=== PATIENT | female | born 1985 | race Caucasian/White ===

== ENCOUNTER → 2018-03-10 10:21 | Outpatient (CLI) | payer OTHER, MEDICAID, SELFPAY ==
[2018-03-10 13:00] LABS: HCG Quantitative /Beta subunit 26.08 mIU/mL
== END ==
PROVIDERS: Visit Provider Obstetrics & Gynecology
DX: N91.2 Amenorrhea, unspecified (principal)
CPT/HCPCS: 36415; 84702

== ENCOUNTER → 2018-03-22 11:48 | Outpatient (CLI) | payer OTHER, MEDICAID, SELFPAY ==
[2018-03-22 12:50] LABS: Add Manual Diff / Slide Review NO; Basophils Percent Auto 0.6 % (0-2); Eosinophils Percent Auto 0.5 % (2-4); Hematocrit 40.1 % (36-46); Hemoglobin 13.5 g/dL (12.0-16.0); Lymphocytes Percent Auto 32.2 % (25-40); Mean Corpuscular HGB Conc 33.6 % (30-36); Mean Corpuscular Hemoglobin 32.6 PG (26-34); Monocytes Percent Auto 6.8 % (3-14); Neutrophils Absolute Auto 3100 /uL (3000-5900); Neutrophils Percent Auto 59.9 % (50-75); Platelet Count 273 X10^3/uL (150-400); Red Blood Cell Count 4.13 X10^6/uL (4.0-5.2); Red Cell Distribution Width 11.8 % (11.6-14.8); White Blood Cell Count 5.2 X10^3/uL (4.5-11.0)
[2018-03-22 13:28] LABS: HCG Quantitative /Beta subunit 10023 mIU/mL
[2018-03-22 14:51] LABS: Hepatitis B Surface Antigen NEGATIVE s/c (NEGATIVE); Rubella Antibody IgG 18.6 IU/mL (>15)
[2018-03-22 15:12] LABS: HIV 1 and 2 Antibody NEGATIVE (NEGATIVE); Hep C Virus Ab w/Reflex Quant NEGATIVE s/c (NEGATIVE)
[2018-03-24 14:06] LABS: HSV 2 IGG AB < 0.90 index (< 0.90)
[2018-03-29 10:32] LABS: Rapid Plasma Reagin NON-REACTIVE
== END ==
PROVIDERS: Visit Provider Obstetrics & Gynecology
DX: N96 Recurrent pregnancy loss (principal); Z34.91 Encounter for supervision of normal pregnancy, unspecified, first trimester
CPT/HCPCS: 36415; 80055; 84702; 86695; 86696; 86703; 86787; 86803; 86850; 86900; 86901; 87086

== ENCOUNTER → 2018-04-14 16:46 | Outpatient (CLI) | payer OTHER, MEDICAID, SELFPAY ==
[2018-04-14 22:06] LABS: Urine N gonorrhoeae NOT DETECTED
[2018-04-14 22:07] LABS: Urine Chlamydia NOT DETECTED
== END ==
PROVIDERS: Visit Provider Obstetrics & Gynecology
DX: Z11.3 Encounter for screening for infections with a predominantly sexual mode of transmission (principal); Z11.8 Encounter for screening for other infectious and parasitic diseases; Z34.81 Encounter for supervision of other normal pregnancy, first trimester
CPT/HCPCS: 87491; 87591

== ENCOUNTER → 2018-06-19 12:21 | Outpatient (CLI) | payer OTHER, MEDICAID, SELFPAY ==
[2018-06-25 11:56] LABS: AFP, Serum 21.1 ng/mL; Calc Gestational Age 18.3; Cigarette Smoker N; Donated Egg NOT GIVEN; Donor Egg Age NOT GIVEN; Estriol, Free 1.64 ng/mL; Inhibin A, Dimeric 170 pg/mL; Maternal Weight 152 lbs; Number of Fetuses 1; Previous Pregnancy Down Syndro NOT GIVEN; hCG, MoM 1.54; hCG, Serum 35.4 IU/mL
== END ==
PROVIDERS: PCP Family Medicine; Visit Provider Obstetrics & Gynecology
DX: Z3A.18 18 weeks gestation of pregnancy (principal); Z34.82 Encounter for supervision of other normal pregnancy, second trimester
CPT/HCPCS: 82105; 82677; 84702; 86336

== ENCOUNTER → 2018-07-01 10:13 | Outpatient (CLI) | payer OTHER, MEDICAID, SELFPAY ==
--- NOTE | 2018-07-01 10:14 | DI.US.S_ITS ---
PROCEDURE: US OB >= 14 WEEKS FETUS INDICATIONS: Anatomy Survey OUTSIDE/PRIOR DATING DATA: Last menstrual period (LMP): 02/11/18. LMP-based estimated date of delivery (YULIET): 11/18/18. First dating scan (date and location): 04/14/18. Estimated date of delivery (YULIET) from first dating scan: 11/19/18. TECHNIQUE: Real-time scanning was performed of the fetus, with image documentation and biometric measurements. Endovaginal scanning: No COMPARISON: [facility], , OB >= 14 WEEKS FETUS, 04/14/2018, 16:47. FINDINGS: General: A single living intrauterine gestation is present. Presentation: Transverse. Placenta: Placental position is posterior lateral, without previa. Amniotic fluid index: 14.7 cm, normal range is 5-24 cm. heart rate: 150 beats per minute. Maternal cervical canal: 5.7 cm long. Normal lower limit is 2.5 cm. biometrics: Biparietal diameter: 20 weeks Head circumference: 19 weeks 6 days Abdominal circumference: 20 weeks 3 days Femur length: 20 weeks 3 days Estimated gestational age from initial scan: 19 weeks 6 days Composite gestational age from present scan: 20 weeks 1 day Estimated weight and percentile: 349 g; 74 percentile Measurement variability for biometric dating: +/- 7 days from 14 weeks to 15 weeks 6 days gestation, +/- 10 days from 16 weeks to 21 weeks 6 days gestation, +/- 2 weeks from 22 weeks to 27 weeks 6 days gestation, +/- 3 weeks for 28 weeks gestation or later. weight reference: 4500 g or EFW >90/95% is considered macrosomia or large for gestational age. EFW <10% is small for gestational age. EFW 5% or less is considered intra-uterine growth restriction. Anatomic survey: Neuro: Ventricles are non-dilated at less than 10 mm. Cisterna magna is normal at 3-11 mm. Cerebellum is normal in size and morphology. Nuchal skin fold: Normal at less than 6 mm between 14-21 weeks gestational age. Face: Nose and lips, facial profile are normal. Spine: No evidence for spina bifida. Heart: 4-chambered heart is present, with normal ventricular outflow tracts. Diaphragm: Diaphragm is intact. Stomach: Left-sided stomach is present. Kidneys: No hydronephrosis. Normal is less than 5 mm in 2nd trimester, less than 7 mm in 3rd trimester. Cord: 3-vessel cord has orthotopic insertion. Bladder: Normal in size. Extremities: All 4 extremities identified. IMPRESSION: 1. Single living IUP redemonstrated and normal interval growth. 2. Normal anatomic survey. Dictated by: Andres Comer [facility] Interpreted: Lois Kelley MD on 07/01/2018 at 11:34 Approved by: Lois Kelley MD, PhD on 07/01/2018 at 11:55
== END ==
PROVIDERS: PCP Family Medicine; Visit Provider Obstetrics & Gynecology
DX: Z34.82 Encounter for supervision of other normal pregnancy, second trimester (principal); Z36.89 Encounter for other specified antenatal screening; Z3A.20 20 weeks gestation of pregnancy
CPT/HCPCS: 76811

== ENCOUNTER → 2018-08-09 16:39 | Outpatient (CLI) | payer OTHER, MEDICAID, SELFPAY ==
[2018-08-09 18:26] LABS: Hematocrit 33.5 % (36-46); Hemoglobin 11.4 g/dL (12.0-16.0)
[2018-08-09 18:40] LABS: GTT (PREG) 1 Hour PP 50gm Dose 110 mg/dL (76-139)
== END ==
PROVIDERS: PCP Family Medicine; Visit Provider Obstetrics & Gynecology
DX: Z34.02 Encounter for supervision of normal first pregnancy, second trimester (principal)
CPT/HCPCS: 36415; 82950; 85014; 85018

== ENCOUNTER 2018-08-16 15:58 | Outpatient (CLI) | payer OTHER, MEDICAID, SELFPAY | END 2018-08-16 16:40 | disposition home or self-care (01) | LOC: OB 08-17 09:59 | PROVIDERS: PCP Family Medicine; Visit Provider Obstetrics & Gynecology | DX: Z34.82 Encounter for supervision of other normal pregnancy, second trimester (principal); Z3A.26 26 weeks gestation of pregnancy | CPT/HCPCS: 59050; G0378; G0379 ==

== ENCOUNTER 2018-09-28 15:05 | Observation (INO) | payer OTHER, MEDICAID, SELFPAY ==
[2018-09-28 15:49] LABS: RBC Urine None Seen (0-5/HPF)
[2018-09-28 15:50] LABS: Appearance Urine UA CLEAR; Bilirubin Urine UA NEGATIVE (NEGATIVE); Color Urine UA YELLOW; Glucose Urine UA NEGATIVE (Negative); Ketones Urine UA 1+ (NEGATIVE); Leukocyte Esterase Urine UA TRACE (NEGATIVE); Nitrite Urine UA NEGATIVE (Negative); Occult Blood Urine UA NEGATIVE (Negative); Protein Urine UA NEGATIVE (Negative); Urobilinogen Urine UA 0.2 E.U./dL (0.2)
[2018-09-28 16:12] LABS: Amorphous Sediment Urine 1+; Bacteria Urine Occasional (0-1); Culture Indicated Urine Specimen Cultured; Squamous Epithelial Cell Urine 1-5 /HPF; WBC Urine 1-5/HPF (0-5/HPF)
[2018-09-28 16:32] LABS: Fetal Fibronectin Negative
== END 2018-09-28 17:25 | disposition home or self-care (01) ==
PROVIDERS: Admitting Provider Obstetrics & Gynecology; PCP Family Medicine; Visit Provider Obstetrics & Gynecology
DX: Z34.83 Encounter for supervision of other normal pregnancy, third trimester (principal); Z3A.32 32 weeks gestation of pregnancy
CPT/HCPCS: 59025; 59050; 81001; 82731; 87086; G0378; G0379

== ENCOUNTER 2018-10-01 16:50 | Observation (INO) | payer OTHER, MEDICAID, SELFPAY ==
--- NOTE | 2018-10-01 17:24 | P.TNLD_ITS ---
Visit Information Visit Information Date of evaluation: 10/01/18 Primary OB Provider: Justina Ann On-call OB Provider: Cassidy Roche Reason for Evaluation: Yes pre-term labor Comments/Additional reasons for admission: Patient presented to the center with complaints of regular contractions throughout the day. Denied loss of fluid. She had been seen 3 days prior due to concern for labor and fibronectin was negative. Urine culture was done at that time as well which was negative. Patient denied urinary symptoms. [facility] Surgical History History of third molar tooth extraction (Resolved) Status post laparoscopy (Resolved) Evaluation Evaluation Baseline heart rate: 140 Variability: Moderate (11-25) monitor accelerations: Present monitor decelerations: Absent Contraction Frequency (minutes): 3 Uterine Contraction Intensity: Mild Category of Tracing: I Diagnosis, Plan/Disposition Final Diagnosis (1) 33 weeks gestation of : Current Visit: No Status: Acute (2) contractions: Current Visit: No Status: Acute Plan/Disposition Plan: Patient is a 32-year-old at 33 and 2 weeks gestation who presented to the center with regular contractions for one day. On the monitor she was tiki every 3-5 minutes however did not report feeling all of the contractions. She received nifedipine which decreased the frequency and intensity of contractions. fibronectin was negative on 09/28/18. Ultrasound for cervical length revealed a 3.2 cm cervix with possible funneling. Imminent pre term labor unlikely given negative fibronectin and cervical length. Patient was discharged home with prescription for nifedipine daily as well as prn contractions. She is to follow up with Dr. Ann next week. Return to the center for persistent contractions not relieved with nifedipine, ruptured membranes, or bleeding.
[2018-10-01 18:13] VITALS: BP 138/74; PULSE 101; RESP 12; TEMP 37
[2018-10-01] MEDS: NIFEdipine 10 MG CAPSULE PO ×4 (18:17→19:19)
--- NOTE | 2018-10-01 18:32 | DI.US.S_ITS ---
PROCEDURE: US OB LIMITED INDICATIONS: PTL; CERVICAL LENGTH OUTSIDE/PRIOR DATING DATA: Last menstrual period (LMP): 01/19/18. LMP-based estimated date of delivery (YULIET): 11/18/18. First dating scan (date and location): 04/14/18, Dr. Ann's office. Estimated date of delivery (YULIET) from first dating scan: 11/19/18. TECHNIQUE: Real-time scanning was performed of the fetus, with image documentation and biometric measurements. COMPARISON: [facility], , US OB >= 14 WEEKS FETUS, 07/01/2018, 10:40. [facility], , US OB >= 14 WEEKS FETUS, 09/17/2018, 15:31. FINDINGS: General: A single living intrauterine gestation is present. Presentation: Vertex. Placenta: Placental position is fundal, without previa. Amniotic fluid index: 13.5 cm, normal range is 5-24 cm. heart rate: 150 beats per minute. Maternal cervical canal: 3.2 cm long. Normal lower limit is 2.5 cm. There is funneling at the internal os which measures approximately 2.8 cm in length. Other: Not applicable. IMPRESSION: 1. Cervical length of 3.2 cm with possible funneling at the os as above. 2. No other sonographic abnormalities. Dictated by: Holly Hancock M.D. on 10/01/2018 at 19:26 Approved by: Holly Hancock M.D. on 10/01/2018 at 19:31
[2018-10-01 19:55] VITALS: BP 138/74; PULSE 101; RESP 12; TEMP 37
== END 2018-10-01 19:53 | disposition home or self-care (01) ==
PROVIDERS: Admitting Provider Family Medicine; PCP Family Medicine; Visit Provider Family Medicine
DX: O60.03 Preterm labor without delivery, third trimester (principal); Z3A.33 33 weeks gestation of pregnancy
CPT/HCPCS: 59025; 59050; 76815; 76817; G0378; G0379

== ENCOUNTER → 2018-10-19 14:50 | Outpatient (CLI) | payer OTHER, MEDICAID, SELFPAY ==
[2018-10-20 11:41] LABS: Strep Grp B PCR NEG for Grp B Strep
== END ==
PROVIDERS: PCP Family Medicine; Visit Provider Obstetrics & Gynecology
DX: Z34.83 Encounter for supervision of other normal pregnancy, third trimester (principal)
CPT/HCPCS: 87653

== ENCOUNTER → 2018-10-26 12:34 | Outpatient (CLI) | payer OTHER, MEDICAID, SELFPAY ==
[2018-10-26 13:19] LABS: Add Manual Diff / Slide Review NO; Basophils Absolute Auto 0 /uL (0-100); Basophils Percent Auto 0.3 % (0-2); Eosinophils Absolute Auto 0 /uL (0-450); Eosinophils Percent Auto 0.4 % (2-4); Hematocrit 29.5 % (36-46); Lymphocytes Absolute Auto 1600 /uL (1100-4500); Lymphocytes Percent Auto 24.6 % (25-40); Mean Corpuscular Hemoglobin 29.5 PG (26-34); Mean Corpuscular Volume 86.9 fL (80-100); Monocytes Absolute Auto 600 /uL (0-900); Monocytes Percent Auto 8.6 % (3-14); Neutrophils Absolute Auto 4300 /uL (1500-7000); Neutrophils Percent Auto 66.1 % (50-75); Platelet Count 216 X10^3/uL (150-400); Red Blood Cell Count 3.39 X10^6/uL (4.0-5.2); White Blood Cell Count 6.6 X10^3/uL (4.5-11.0)
[2018-10-26 13:36] LABS: Aspartate Aminotransferase 14 IU/L (14-36); Blood Urea Nitrogen 5 mg/dL (7-17); Estimated Glomerular Filt Rate > 60.0 mL/min (>60)
== END ==
PROVIDERS: PCP Family Medicine; Visit Provider Obstetrics & Gynecology
DX: O13.9 Gestational [pregnancy-induced] hypertension without significant proteinuria, unspecified trimester (principal)
CPT/HCPCS: 36415; 84450; 84550; 85025

== ENCOUNTER 2018-10-26 12:37 | Observation (INO) | payer OTHER, MEDICAID, SELFPAY | END 2018-10-26 15:08 | disposition home or self-care (01) | LOC: AC 12:55 → LABOR 12:56 | PROVIDERS: Admitting Provider Obstetrics & Gynecology; PCP Family Medicine; Visit Provider Obstetrics & Gynecology | DX: O13.3 Gestational [pregnancy-induced] hypertension without significant proteinuria, third trimester (principal); Z3A.36 36 weeks gestation of pregnancy | CPT/HCPCS: 36415; 59025; 59050; 59200; 84450; 84550; 85025; G0378; G0379 ==

== ENCOUNTER 2018-11-05 09:12 | Inpatient (IN) | payer OTHER, MEDICAID, SELFPAY ==
[2018-11-05] MEDS: OXYTOCIN PREMIX 30 UNIT/500 ML PLAST..BAG IV (10:40)
[2018-11-05] MEDS: LACTATED RINGERS 1,000 ML 100 ML IV ×2 (10:40→14:42)
[2018-11-05 10:42] LABS: Add Manual Diff / Slide Review NO; Basophils Absolute Auto 0 /uL (0-100); Basophils Percent Auto 0.2 % (0-2); Eosinophils Absolute Auto 0 /uL (0-450); Eosinophils Percent Auto 0.5 % (2-4); Hematocrit 29.5 % (36-46); Hemoglobin 9.7 g/dL (12.0-16.0); Lymphocytes Absolute Auto 1500 /uL (1100-4500); Lymphocytes Percent Auto 24.1 % (25-40); Mean Corpuscular HGB Conc 32.8 % (30-36); Mean Corpuscular Hemoglobin 28.6 PG (26-34); Mean Corpuscular Volume 87.4 fL (80-100); Monocytes Absolute Auto 300 /uL (0-900); Monocytes Percent Auto 5.2 % (3-14); Neutrophils Absolute Auto 4200 /uL (1500-7000); Platelet Count 214 X10^3/uL (150-400); Red Blood Cell Count 3.37 X10^6/uL (4.0-5.2); Red Cell Distribution Width 14.6 % (11.6-14.8)
[2018-11-05 19:35] VITALS: BP 134/83
[2018-11-05 20:31] VITALS: TEMP 37.3
[2018-11-05] MEDS: IBUPROFEN 600 MG TABLET PO (20:31)
[2018-11-05 23:58] VITALS: TEMP 36.9
[2018-11-05] MEDS: OXYCODONE/ACETAMINOPHEN 5/325 TABLET 1 TAB PO (23:58)
[2018-11-06 05:29] VITALS: TEMP 37.2
[2018-11-06] MEDS: IBUPROFEN 600 MG TABLET PO ×3 (05:29→20:33)
[2018-11-06 06:54] LABS: Hematocrit 28.3 % (36-46); Hemoglobin 9.3 g/dL (12.0-16.0)
[2018-11-06] MEDS: DOCUSATE 250 MG CAPSULE PO (08:32)
[2018-11-06] MEDS: OXYCODONE/ACETAMINOPHEN 5/325 TABLET 1 TAB PO ×3 (08:32→19:35)
[2018-11-06] MEDS: DERMOPLAST SPRAY 20% 60 ML 1 SPRAY TOP (08:47)
[2018-11-06 19:35] VITALS: TEMP 37.2
[2018-11-07 03:37] VITALS: TEMP 36.8
[2018-11-07] MEDS: IBUPROFEN 600 MG TABLET PO ×2 (03:37→10:28)
[2018-11-07 03:38] VITALS: TEMP 36.8
[2018-11-07] MEDS: OXYCODONE/ACETAMINOPHEN 5/325 TABLET 1 TAB PO (03:38)
[2018-11-07 08:26] VITALS: BP 126/78; PULSE 65; RESP 16; TEMP 36.8
[2018-11-07] MEDS: PRENATAL VIT,CALC/IRON/FOLIC 1 TABLET 1 TAB PO (10:28)
[2018-11-07] MEDS: CITALOPRAM 10 MG TABLET PO (10:29)
[2018-11-07] MEDS: DOCUSATE 250 MG CAPSULE PO (10:29)
--- NOTE | 2018-11-10 06:28 | PM.OBHP.1 ---
OB HPI Date/Time Date of admission: 11/05/18 Date Patient Seen: 11/05/18 Time Patient Seen: 10:00 History of Present Condition Chief complaint: LABOR AND DELIVERY : 2 Para: 1 Estimated Date of Delivery: 11/17/18 Estimated Gestational Age (weeks): 38+ 2 Narrative: Renee Hadley is a 32 year old female 2 para 1 at 38-,2/7 weeks gestation with a prodromal labor and gestational hypertension here for augmentation of labor Indications Indication for induction OB: other (Prodromal labor, gestational hypertension) History of Present care: good care, initiated at week # (9), number of visits (12) and pounds weight gain (20) Dating criteria: LMP confirmed by 1st trimester US Ultrasounds: normal 1st trimester US and normal mid trimester US Obstetrical complications: gestational hypertension Medical complications: none Preadmission Labs Blood type: O (+) positive -: Antibody screen: negative, GBS status: negative, HBsAG: negative, HIV: negative, HSV 1: positive, HSV 2: negative and RPR/VDLR: negative -: Chlamydia screen: not detected and Gonorrhea screen: not detected -: Rubella: immune and Varicella: immune HCT: 33.5 HCAB: negative PAP: Normal Quad screen: Normal Urine: Negative 1 hr GTT: 110 Prior (ies) History: 1 spontaneous vaginal delivery at 39 weeks. 2 prior miscarriages. Evaluation Evaluation Baseline heart rate: 150 Variability: Moderate (11-25) monitor accelerations: Present monitor decelerations: Absent Contraction Frequency (minutes): 5 Uterine Contraction Intensity: Moderate Category of Tracing: I Cervical dilation (cm): 4 Cervical effacement (%): 90 station: -1 Laboratory results: Laboratory Tests 11/05/18 11/05/18 11/06/18 10:00 10:00 06:33 WBC 6.0 RBC 3.37 L Hgb 9.7 L 9.3 L Hct 29.5 L 28.3 L MCV 87.4 MCH 28.6 MCHC 32.8 RDW 14.6 Plt Count 214 Neut % (Auto) 70.0 Lymph % (Auto) 24.1 L [place] % (Auto) 5.2 Eos % (Auto) 0.5 L Baso % (Auto) 0.2 Neut # (Auto) 4200 Lymph # (Auto) 1500 [place] # (Auto) 300 Eos # (Auto) 0 Baso # (Auto) 0 Blood Type O Positive Antibody Screen Negative PFSH Social History Smoking Status: Never smoker Meds Home Medications Medication Instructions Recorded Confirmed Type ibuprofen 200 mg PO TID PRN #0 10/10/16 11/07/18 History melatonin 3 mg PO HS #0 10/10/16 11/07/18 History citalopram [Celexa] 10 mg PO QDAY #30 tab 10/05/17 11/07/18 Rx Allergies Allergy/AdvReac Type Severity Reaction Status Date / Time No Known Drug Allergies Allergy Verified 11/05/18 18:25 Exam Vital Signs (past 8 hours): Generally no acute distress Lungs: Clear to auscultation bilaterally Cardiovascular: Regular rate and rhythm Fundal height: 38 cm Estimated weight: 7 and 0.5 lb Extremities 1+ edema, negative Homans Objective Labs Result Diagrams: 11/06/18 06:33 Assessment and Plan (1) 38 weeks gestation of : Current visit: No Status: Acute Plan: Assessment: 32-year-old 4 para 1 at 38-,2/7 weeks gestation with prodromal labor and gestational hypertension Plan: Artificial rupture of membranes Pitocin augmentation as needed Epidural as necessary Expected management to spontaneous vaginal delivery (2) Gestational hypertension: Current visit: No Status: Acute
--- NOTE | 2018-11-10 06:36 | P.HPOB_ITS ---
OB HPI Date/Time Date of admission: 11/05/18 Date Patient Seen: 11/05/18 Time Patient Seen: 10:00 History of Present Condition Chief complaint: LABOR AND DELIVERY : 2 Para: 1 Estimated Date of Delivery: 11/17/18 Estimated Gestational Age (weeks): 38+ 2 Narrative: Renee Hadley is a 32 year old female 2 para 1 at 38- ,2/7 weeks gestation with a prodromal labor and gestational hypertension here for augmentation of labor Indications Indication for induction OB: other (Prodromal labor, gestational hypertension) History of Present care: good care, initiated at week # (9), number of visits (12) and pounds weight gain (20) Dating criteria: LMP confirmed by 1st trimester US Ultrasounds: normal 1st trimester US and normal mid trimester US Obstetrical complications: gestational hypertension Medical complications: none Preadmission Labs Blood type: O (+) positive -: Antibody screen: negative, GBS status: negative, HBsAG: negative, HIV: negative, HSV 1: positive, HSV 2: negative and RPR/VDLR: negative -: Chlamydia screen: not detected and Gonorrhea screen: not detected -: Rubella: immune and Varicella: immune HCT: 33.5 HCAB: negative PAP: Normal Quad screen: Normal Urine: Negative 1 hr GTT: 110 Prior (ies) History: 1 spontaneous vaginal delivery at 39 weeks. 2 prior miscarriages. Evaluation Evaluation Baseline heart rate: 150 Variability: Moderate (11-25) monitor accelerations: Present monitor decelerations: Absent Contraction Frequency (minutes): 5 Uterine Contraction Intensity: Moderate Category of Tracing: I Cervical dilation (cm): 4 Cervical effacement (%): 90 station: -1 Laboratory results: Laboratory Tests 11/05/18 11/05/18 11/06/18 10:00 10:00 06:33 WBC 6.0 RBC 3.37 L Hgb 9.7 L 9.3 L Hct 29.5 L 28.3 L MCV 87.4 MCH 28.6 MCHC 32.8 RDW 14.6 Plt Count 214 Neut % (Auto) 70.0 Lymph % (Auto) 24.1 L [place] % (Auto) 5.2 Eos % (Auto) 0.5 L Baso % (Auto) 0.2 Neut # (Auto) 4200 Lymph # (Auto) 1500 [place] # (Auto) 300 Eos # (Auto) 0 Baso # (Auto) 0 Blood Type O Positive Antibody Screen Negative PFSH Social History Smoking Status: Never smoker Meds Home Medications Medication Instructions Recorded Confirmed Type ibuprofen 200 mg PO TID PRN #0 10/10/16 11/07/18 History melatonin 3 mg PO HS #0 10/10/16 11/07/18 History citalopram [Celexa] 10 mg PO QDAY #30 tab 10/05/17 11/07/18 Rx Allergies Allergy/AdvReac Type Severity Reaction Status Date / Time No Known Drug Allergies Allergy Verified 11/05/18 18:25 Exam Vital Signs (past 8 hours): Generally no acute distress Lungs: Clear to auscultation bilaterally Cardiovascular: Regular rate and rhythm Fundal height: 38 cm Estimated weight: 7 and 0.5 lb Extremities 1+ edema, negative Homans Objective Labs Result Diagrams: 11/06/18 06:33 Assessment and Plan (1) 38 weeks gestation of : Current visit: No Status: Acute Plan: Assessment: 32-year-old 4 para 1 at 38-,2/7 weeks gestation with prodromal labor and gestational hypertension Plan: Artificial rupture of membranes Pitocin augmentation as needed Epidural as necessary Expected management to spontaneous vaginal delivery (2) Gestational hypertension: Current visit: No Status: Acute
--- NOTE | 2018-11-10 06:36 | PM.OBPRVD ---
Events: Induced HTN Delivery date: 11/05/18 Intrapartal events: None Cervical ripening method: none Induction method: AROM Delivery augmentation: pitocin Delivery monitor: external FHT and external uterine Route of delivery: Episiotomy description: None L&D Laceration Description: Superficial (Bilateral labial) Delivery repair: chromic Estimated blood loss (mL): 150 Anesthesia type: Epidural Complications: None Narrative: Patient complete and pushed for 24 min. At 4:22 p.m., a live female delivered spontaneously over an intact perineum. No nuchal cord the remainder of the body delivered without difficulty and was placed on mom's abdomen the cord was double clamped and cut after it stopped pulsing. Pitocin was given in the IV fluids. Cord bloods were obtained. Placenta delivered intact with a 3 vessel cord at 4:27 p.m.. Bilateral superficial labial lacerations were repaired with 4 0 chromic. Hemostasis was achieved. Estimated blood loss 150 cc. Apgars 8 at 1 min and 9 at 5 min. . Epidural analgesia. Weight 7 lb 6.45 oz. Mom and infant stable to recovery. Plan for aftercare: To routine care
--- NOTE | 2018-11-10 06:41 | P.PNOB_ITS ---
Subjective - OB Interval history: Patient is a 32-year-old 4 para 2 day # 1 status post spontaneous vaginal delivery Patient comments: no complaints baby status: doing well and nursing well [place] feeding status: exclusively breast feeding Date Patient Seen: 11/06/18 Time Patient Seen: 08:30 Exam Vital Signs (past 8 hours): Generally: Patient walking around and room, no acute distress Fundus: Firm at U -1 Extremities: 1+ edema, negative Homans Objective Labs Result Diagrams: 11/06/18 06:33 Assessment & Plan (1) 38 weeks gestation of : Status: Acute Current Visit: No (2) Gestational hypertension: Status: Acute Current Visit: No (3) Normal spontaneous vaginal delivery: Status: Acute Current Visit: No Plan day: 1 plan OB: routine care Time Spent With Patient Total time spent is greater than 50% in coordination of care (as documented) at patient's floor/unit and/or counseling patient: 15-24 minutes
--- NOTE | 2018-11-10 06:41 | PM.OBDS.1 ---
Discharge Providers Date of admission: 11/05/18 09:12 Primary care physician: Jamar Crooks MD Consults: 11/05/18 18:21 Consult to [employer] Routine Comment: Discharge provider: Justina Ann MD Discharge Date: 11/07/18 Summary Date Patient Seen: 11/07/18 Time Patient Seen: 11:30 Hospital Course: Patient is a 32-year-old 4 para 2 admitted on 11/05/2018 for augmentation of labor due to prodromal labor and gestational hypertension. Patient had an artificial rupture of membranes and then Pitocin augmentation. She had a spontaneous vaginal delivery without complication. Her course has been unremarkable. is going well. Pain is well controlled. Peripartum Data Delivery Method: Natural Vaginal Laceration description: Superficial (Bilateral labial) Episiotomy description: None Procedures: Artificial rupture of membranes Pitocin augmentation Epidural analgesia Spontaneous vaginal delivery Repair of superficial labial lacerations complications: none Discharge Diagnosis (1) 38 weeks gestation of : Status: Acute (2) Gestational hypertension: Status: Acute (3) Normal spontaneous vaginal delivery: Status: Acute Status at Discharge Functional status at discharge: independent ambulation Overall status at discharge: patient is progressing back to baseline Time Spent with Patient Total time spent providing and/or coordinating discharge services: Less than 30 minutes Objective Labs Result Diagrams: 11/06/18 06:33 Discharge Plan Discharge Plan Patient Disposition: Home Discharge comment: Call with fever, chills or bleeding vaginally more than a pad in an hour Discharge Med Rec/Prescriptions Prescriptions: Continued melatonin 3 MG tablet 3 mg PO HS Qty: 0 RF: 0 ibuprofen 200 MG tablet 200 mg PO TID PRN (Reason: Pain (Scale Score 1-3)) Qty: 0 RF: 0 citalopram [Celexa] 10 MG tablet 10 mg PO QDAY Qty: 30 RF: 3 Discontinued oxycodone-acetaminophen [Percocet] 5-325 mg tablet 1 tab PO Q4-6H PRN (Reason: pain) Qty: 20 RF: 0 Follow up/Referrals: Justina Ann MD [Physician] - 6 Weeks ('s nurse will call you with an appointment tomorrow for 6 weeks) Provider Discharge Instructions Diet: Diet as Tolerated Activity: No intercourse Skin/Wound/Dressing Care Report to your healthcare provider any signs of infection, such as:: chills, fever, increased pain and unusual drainage Visit Report/Discharge Packet Instructions: DI for Labor and Delivery, Vaginal Discharge Data Primary Care Provider: Jamar Crooks Attending Provider: Justina Ann Admit Date/Time: 11/05/18 09:12 Discharges patient from system. Discharge Date/Time: 11/07/18 11:19
== END 2018-11-07 11:19 | disposition home or self-care (01) | DRG 560 ==
PROVIDERS: Admitting Provider Obstetrics & Gynecology; PCP Family Medicine; Visit Provider Obstetrics & Gynecology
DX: O13.4 Gestational [pregnancy-induced] hypertension without significant proteinuria, complicating childbirth (principal); O70.0 First degree perineal laceration during delivery; Z3A.38 38 weeks gestation of pregnancy; Z37.0 Single live birth
CPT/HCPCS: 59050; 59409; 85014; 85018; 85025; 86850; 86900; 86901; G0379; J2590

== ENCOUNTER → 2018-11-18 16:08 | Outpatient (CLI) | payer OTHER, MEDICAID, SELFPAY ==
[2018-11-18 16:22] LABS: Bacteria Urine None Seen
[2018-11-18 19:04] LABS: Appearance Urine UA CLEAR; Bilirubin Urine UA NEGATIVE (NEGATIVE); Color Urine UA YELLOW; Glucose Urine UA NEGATIVE (Negative); Ketones Urine UA TRACE (NEGATIVE); Leukocyte Esterase Urine UA NEGATIVE (NEGATIVE); Nitrite Urine UA NEGATIVE (Negative); Occult Blood Urine UA 2+ (Negative); Protein Urine UA NEGATIVE (Negative); Urobilinogen Urine UA 0.2 E.U./dL (0.2); pH Urine UA 5.5 (4.5-8.0)
[2018-11-18 19:23] LABS: RBC Urine 1-5/HPF (0-5/HPF); Squamous Epithelial Cell Urine 0-1 /HPF; WBC Urine 1-5/HPF (0-5/HPF)
[2018-11-18 19:24] LABS: Culture Indicated Urine Cult Not Indicated
== END ==
PROVIDERS: PCP Family Medicine; Visit Provider Obstetrics & Gynecology
DX: R10.9 Unspecified abdominal pain (principal)
CPT/HCPCS: 81001

== ENCOUNTER → 2019-01-21 14:32 | Outpatient (ROUT) | payer OTHER, MEDICAID, SELFPAY ==
[2019-01-21 14:43] LABS: Add Manual Diff / Slide Review NO; Basophils Absolute Auto 100 /uL (0-100); Basophils Percent Auto 0.7 % (0-2); Eosinophils Absolute Auto 100 /uL (0-450); Eosinophils Percent Auto 0.8 % (2-4); Hematocrit 39.1 % (36-46); Hemoglobin 12.6 g/dL (12.0-16.0); Lymphocytes Absolute Auto 2600 /uL (1100-4500); Lymphocytes Percent Auto 35.8 % (25-40); Mean Corpuscular HGB Conc 32.3 % (30-36); Mean Corpuscular Hemoglobin 29.8 PG (26-34); Mean Corpuscular Volume 92.3 fL (80-100); Monocytes Absolute Auto 500 /uL (0-900); Monocytes Percent Auto 6.6 % (3-14); Neutrophils Absolute Auto 4000 /uL (1500-7000); Neutrophils Percent Auto 56.1 % (50-75); Platelet Count 245 X10^3/uL (150-400); Red Blood Cell Count 4.23 X10^6/uL (4.0-5.2); Red Cell Distribution Width 17.8 % (11.6-14.8); White Blood Cell Count 7.1 X10^3/uL (4.5-11.0)
[2019-01-21 14:47] LABS: BUN Creatinine Ratio 26.7 (6-22); Blood Urea Nitrogen 16 mg/dL (7-17); Calcium 9.7 mg/dL (8.4-10.2); Carbon Dioxide 21 mmol/L (22-32); Chloride 104 mmol/L (98-107); Estimated Glomerular Filt Rate > 60.0 mL/min (>60); Glucose 80 mg/dL (70-100); HEMOLYSIS < 15 (0-50); Potassium 3.9 mmol/L (3.4-5.1); Sodium 137 mmol/L (137-145)
[2019-01-21 16:46] LABS: Erythrocyte Sedimentation Rate 22 MM/HR (0-20)
== END ==
PROVIDERS: PCP Family Medicine; Visit Provider Family Medicine
DX: R10.31 Right lower quadrant pain (principal)
CPT/HCPCS: 80048; 85025; 85651

== ENCOUNTER 2019-06-07 15:49 | Emergency (ER) | payer OTHER, MEDICAID, SELFPAY ==
[2019-06-07 15:59] VITALS: BP 141/105; PULSE 90; RESP 14; TEMP 36.8; O2SAT 100; BMI 24.0
--- NOTE | 2019-06-07 16:10 | ED_ITS ---
HPI - Headache <Luly Miller PA-C - Last Filed: 06/07/19 20:59> General Chief Complaint: Headache Stated Complaint: headache Time Seen by Provider: 06/07/19 15:56 Source: patient Mode of arrival: Ambulatory Limitations: no limitations History of Present Illness HPI Narrative: This 33-year-old female states she was sent from primary care clinic due to headache. She states that she had onset of headache, mainly left- sided, 2 weeks ago. She had a bit of a sore throat and thought she was getting a head cold or upper respiratory infection, however other symptoms went away but she has continued to have headache. She states that they last all day, and in the last week have been present at night, she thinks they may awaken her from sleep but not sure. She states that she will notice some haziness at the sides of her vision, no specific visual scotomas or vision change. She has had nausea but no vomiting. She was taking ibuprofen previously which seemed to help the headache but headache came back. She states she has not had any difficulty going about her usual activities, no difficulty with speech, gait, coordination. She has not had any new fever or rash. She does have a history of migraines in her teens which were somewhat similar but has not had them in recent years. She denies any other new symptoms or complaints on systems review Related Data Home Medications Medication Instructions Recorded Confirmed No Known Home Medications 06/07/19 06/07/19 Allergies Allergy/AdvReac Type Severity Reaction Status Date / Time No Known Drug Allergies Allergy Verified 06/07/19 15:59 Review of Systems <Luly Miller PA-C - Last Filed: 06/07/19 20:59> Review of Systems ROS Unobtainable: All systems reviewed & are unremarkable except as noted in HPI and below PFSH <Luly Miller PA-C - Last Filed: 06/07/19 20:59> Medical History (Updated 06/07/19 @ 18:31 by Luly Miller PA-C) Hx of migraines (Chronic) Surgical History (Updated 06/07/19 @ 16:31 by Luly Miller PA-C) History of third molar tooth extraction (Resolved) No history of previous surgery (Chronic) Status post laparoscopy (Resolved) Social History Smoking Status: Never smoker Social History Smoking Status: Never smoker Exam <Luly Miller PA-C - Last Filed: 06/07/19 20:59> Narrative Exam Narrative: GENERAL APPEARANCE: Patient sitting comfortably, in no distress. HEENT: PERRL, EOMI, normal TMs and oropharynx, no sinus TTP NECK: Supple LUNGS: Clear to auscultation bilaterally. HEART: Rate and rhythm regular without murmur, normal S1 and S2, no S3 or S4. ABDOMEN: Soft, NT, ND, + BS x 4 quadrants NEUROLOGIC: Alert and oriented, normal speech, gait and coordination. Bilateral upper and lower extremity DTRs 2+ throughout MUSCULOSKELETAL: Full Csp AROM, no cervical musculature tenderness. Strength 5/5 throughout all schultz upper and lower extremities Initial Vital Signs Initial Vital Signs: Vital Signs Temperature 98.3 F 06/07/19 15:59 Pulse Rate 90 06/07/19 15:59 Respiratory Rate 14 06/07/19 15:59 Blood Pressure 141/105 H 06/07/19 15:59 Pulse Oximetry 100 06/07/19 15:59 <Lori Santos DO - Last Filed: 06/08/19 08:33> Initial Vital Signs Initial Vital Signs: Vital Signs Temperature 98.3 F 06/07/19 15:59 Pulse Rate 90 06/07/19 15:59 Respiratory Rate 14 06/07/19 15:59 Blood Pressure 141/105 H 06/07/19 15:59 Pulse Oximetry 100 06/07/19 15:59 Course <Luly Miller PA-C - Last Filed: 06/07/19 20:59> Course Additional Information: Patient appears neurologically normal on exam today. She does have a history of migraines though none recently. She also noted that she had dental work done prior to the onset of headache. No evidence of infection. Head CT done after discussion with her primary care nurse practitioner who was concerned about nighttime headache. No acute abnormality. Advised OTC medications, rest, avoid screen time, loud noise, etc and follow-up with PCP. Advised return if any acutely worsening symptoms and she is agreeable Orders Ordered: ED Orders 06/07/19 17:16 CT head/brain wo con Stat Vital Signs Vital signs: Vital Signs - 8 hr 06/07/19 15:59 Temperature 98.3 F Pulse Rate 90 Respiratory Rate 14 Blood Pressure 141/105 H Pulse Oximetry 100 <Lori Santos DO - Last Filed: 06/08/19 08:33> Orders Ordered: ED Orders 06/07/19 17:16 CT head/brain wo con Stat Vital Signs Vital signs: Vital Signs - 8 hr 06/07/19 15:59 Temperature 98.3 F Pulse Rate 90 Respiratory Rate 14 Blood Pressure 141/105 H Pulse Oximetry 100 MDM - Headache <Luly Miller PA-C - Last Filed: 06/07/19 20:59> Lab Data Labs: Point of Care Testing Test Results Negative Imaging Data CT scan - head: Radiologist's impression: 26 Luly Miller PA-C Find Patient Imaging - Jack Hadleya Nelsy 33 F 1985 ACTIVITY DATE EXAM STATUS AUTHOR 06/07/19 17:16 Signed Zeina,[address] [address] [address] Scan Report Signed Patient: Renee Hadley MMR#: [id number] : 1985Acct:[id number] Age/Sex: te of Service: 06/07/19 Loc: ED Accession Number: [id number] Procedure: CT head/brain wo con Ordering Provider: Luly Miller P.A-C PROCEDURE: CT HEAD/BRAIN WO CON INDICATIONS: new KASPER awakening from sleep TECHNIQUE: Noncontrast 4.5 mm thick angled axial sections acquired from the foramen magnum to the vertex, with coronal and sagittal reformats. For radiation dose reduction, the following was used: automated exposure control, adjustment of mA and/or kV according to patient size. COMPARISON: None. FINDINGS: Image quality: Excellent. CSF spaces: Basal cisterns are patent. No extra-axial fluid collections. Ventricles are normal in size and shape. Brain: No midline shift. No intracranial masses or hemorrhage. [place]-white matter interface is normal. Pineal gland calcification. Skull and face: Calvarium and visualized facial bones are intact, without suspicious lesions. Sinuses: Visualized sinuses and mastoids are clear. IMPRESSION: No acute intracranial abnormality demonstrated. Dictated by: Anthony Pastrana M.D. on 06/07/2019 at 18:16 Approved by: Anthony Pastrana M.D. on 06/07/2019 at 18:17 <Lori Santos DO - Last Filed: 06/08/19 08:33> Lab Data Labs: Point of Care Testing Test Results Negative Discharge Plan Departure Patient Disposition: Home Clinical Impression: Headache Qualifiers: Headache type: unspecified Headache chronicity pattern: chronic headache Intractability: not intractable Qualified Code(s): R51 - Headache Migraine Qualifiers: Migraine type: without aura Status migrainosus presence: without status migrainosus Intractability: not intractable Qualified Code(s): G43.009 - Migraine without aura, not intractable, without status migrainosus Discharge Date/Time: 06/07/19 18:37 Instructions: DI for Headache Activity Restrictions/Additional Instructions: I think that your headache is a variant of your previous migraines, which may have been triggered by dental work, hormone changes or a combination of things. There was no acute abnormality found on your CT scan today. As we talked about, you should return if you are feeling acutely worse in terms of your pain, or if you have new symptoms as far as vision changes, vomiting, or fever. Otherwise, you may want to try ibuprofen again and you can take Tylenol in addition to this. Rest in a dark, quiet room, avoid screen time. Please call the clinic in the morning to set up a short-term follow-up and evaluate your progress. Prescriptions: No Action No Known Home Medications RF: 0 Referrals: Jamar Crooks MD [Primary Care Provider] -
--- NOTE | 2019-06-07 17:16 | DI.CT.S_ITS ---
PROCEDURE: CT HEAD/BRAIN WO CON INDICATIONS: new KASPER awakening from sleep TECHNIQUE: Noncontrast 4.5 mm thick angled axial sections acquired from the foramen magnum to the vertex, with coronal and sagittal reformats. For radiation dose reduction, the following was used: automated exposure control, adjustment of mA and/or kV according to patient size. COMPARISON: None. FINDINGS: Image quality: Excellent. CSF spaces: Basal cisterns are patent. No extra-axial fluid collections. Ventricles are normal in size and shape. Brain: No midline shift. No intracranial masses or hemorrhage. [place]-white matter interface is normal. Pineal gland calcification. Skull and face: Calvarium and visualized facial bones are intact, without suspicious lesions. Sinuses: Visualized sinuses and mastoids are clear. IMPRESSION: No acute intracranial abnormality demonstrated. Dictated by: Anthony Pastrana M.D. on 06/07/2019 at 18:16 Approved by: Anthony Pastrana M.D. on 06/07/2019 at 18:17
== END 2019-06-07 18:37 | disposition home or self-care (01) ==
PROVIDERS: Emergency Provider Internal Medicine; Family Provider Family Medicine; PCP Family Medicine
DX: G43.009 Migraine without aura, not intractable, without status migrainosus (principal)
CPT/HCPCS: 70450; 81025; 99282; 99284

== ENCOUNTER 2019-08-20 13:41 | Emergency (ER) | payer OTHER, MEDICAID, SELFPAY ==
[2019-08-20 13:43] VITALS: BP 173/110; PULSE 97; RESP 20; TEMP 36.7; O2SAT 100
--- NOTE | 2019-08-20 14:15 | PC.NURSE ---
RASHAD Maynard at bedside.
--- NOTE | 2019-08-20 15:18 | PC.NURSE ---
Patient is with baby in arms, states she began having anxiety while out at [facility] today and when she got home an hour ago it escalated into a panic attack. She is tearful and tachypneic with tremorous hands. States she has history of anxiety and panic attacks and was on medication with her first child when she was but that she hasn't needed it this time around. She reports she has chronic face pain and has been struggling with it the last few months. States she thinks when she left the house today it was too much and she could not cope with the pain and it sent her into a panic attack. When I asked her the suicide risk assessment questions she began to cry more and reports she has had thoughts of not wanting to wake up but I wouldn't do it. She cries over her baby while holding her and states They won't take my baby now because I told you that right? I reassured her and explained that we are not going to take her baby and we will get a older adult social work specialist to come and talk to her and help her with resources. She denies any thought or plans of actually killing herself, just reports she feels hopeless due to her pain. Suicide Risk is a 1. RASHAD Maynard contacted for patient.
[2019-08-20 15:52] LABS: Add Manual Diff / Slide Review NO; Basophils Absolute Auto 0 /uL (0-100); Basophils Percent Auto 0.5 % (0-2); Eosinophils Absolute Auto 0 /uL (0-450); Eosinophils Percent Auto 0.4 % (2-4); Hematocrit 41.8 % (36-46); Hemoglobin 14.4 g/dL (12.0-16.0); Lymphocytes Absolute Auto 2200 /uL (1100-4500); Lymphocytes Percent Auto 28.5 % (25-40); Mean Corpuscular HGB Conc 34.4 % (30-36); Mean Corpuscular Hemoglobin 33.5 PG (26-34); Mean Corpuscular Volume 97.4 fL (80-100); Monocytes Absolute Auto 500 /uL (0-900); Neutrophils Absolute Auto 4900 /uL (1500-7000); Neutrophils Percent Auto 64.6 % (50-75); Platelet Count 242 X10^3/uL (150-400); Red Blood Cell Count 4.29 X10^6/uL (4.0-5.2); Red Cell Distribution Width 12.2 % (11.6-14.8); White Blood Cell Count 7.6 X10^3/uL (4.5-11.0)
[2019-08-20 16:03] LABS: Blood Urea Nitrogen 9 mg/dL (7-17); Calcium 10.2 mg/dL (8.4-10.2); Carbon Dioxide 26 mmol/L (22-32); Chloride 106 mmol/L (98-107); Estimated Glomerular Filt Rate > 60.0 mL/min (>60); Glucose 78 mg/dL (70-100); HEMOLYSIS < 15 (0-50); Potassium 4.2 mmol/L (3.4-5.1); Sodium 141 mmol/L (137-145)
[2019-08-20 16:20] LABS: Alanine Aminotransferase 16 IU/L (<35); Albumin 4.6 g/dL (3.5-5.0); Albumin Globulin Ratio 1.9 (1.0-2.8); Alkaline Phosphatase 86 U/L (38-126); Aspartate Aminotransferase 22 IU/L (14-36); Bilirubin Total 0.7 mg/dL (0.2-1.3); Bilirubin Unconjugated 0.5 mg/dL (0.0-1.1); Globulin 2.4 g/dL (1.7-4.1); HEMOLYSIS < 15 (0-50)
[2019-08-20 16:25] VITALS: BP 112/72; PULSE 70; RESP 16; O2SAT 98
--- NOTE | 2019-08-20 16:47 | ED_ITS ---
HPI - Anxiety <MORENO Alejandro - Last Filed: 08/20/19 17:17> General Chief Complaint: Anxiety Stated Complaint: Panic Attack Time Seen by Provider: 08/20/19 14:02 Source: patient Mode of arrival: Ambulatory Limitations: no limitations History of Present Illness HPI narrative: The patient is a 33-year-old female nonsmoker with history of migraines who presents with a chief complaint of anxiety and a panic attack earlier today. 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 She gave most recently 11/10/2018. She denies any thoughts of hurting herself or anybody else. She states that today for anxiety and chronic pain just became too much. She states that she recently weaned off of ibuprofen after an emergency department visit as she is concerned about ?rebound pain.She denies any fevers nausea vomiting or diarrhea. She states that her chronic pain is much worse over the past few days. She states she has been dealing with 6 years. She states it is overwhelming. She states she has not been eating as it is painful. She states she feels very overwhelmed. She states she sleeping well. She is requesting medication for depression and anxiety, as well as referrals and ideas for chronic pain management. Related Data Previous Rx's Medication Instructions Recorded fluconazole 150 mg tablet 150 mg PO Q3D #2 tab 07/26/19 gabapentin 100 mg PO BID #20 cap 08/20/19 Allergies Allergy/AdvReac Type Severity Reaction Status Date / Time No Known Drug Allergies Allergy Verified 08/20/19 13:51 Review of Systems <MORENO Alejandro - Last Filed: 08/20/19 17:17> Review of Systems Narrative: GENERAL: Denies chills, fatigue, malaise, fever, sweats. HEENT: See HPI RESPIRATORY: Denies dyspnea, cough, wheezing, hemoptysis, sputum. CARDIOVASCULAR: Denies chest pain, palpitations, orthopnea, edema, GASTROINTESTINAL: Denies nausea, vomiting, abdominal pain, diarrhea, constipation, melena. : Denies dysuria, frequency, incontinence, hematuria, urinary retention. MUSCULOSKELETAL: denies weakness, joint pain, or bony pain SKIN: Denies rash, skin lesions, or other NEUROLOGIC: Denies weakness, headache, numbness, change in speech, confusion, seizures, incoordination. PSYCHIATRIC: See HPI 12 point review of systems is negative except for those stated above Patient History <SAIMA Alejandro - Last Filed: 08/20/19 17:17> Medical History Hx of migraines (Chronic) Surgical History History of third molar tooth extraction (Resolved) No history of previous surgery (Chronic) Status post laparoscopy (Resolved) Social History Smoking Status: Never smoker Smoking Status: Never smoker alcohol intake frequency: 0-2 drinks per day Substance Use Type: does not use Exam <SAIMA Alejandro - Last Filed: 08/20/19 17:17> Narrative Exam Narrative: GENERAL: This is a well-nourished, well-developed patient, in no acute distress . HEAD: Atraumatic. Normocephalic. No temporal or scalp tenderness. EYES: Pupils equal round and reactive. Extraocular motions intact. No scleral icterus. No injection or drainage. ENT: Nose without bleeding, purulent drainage or septal hematoma. Throat without erythema, tonsillar hypertrophy or exudate. Uvula midline. Airway patent. Gums normal to inspection. No erythema or drainage noted. NECK: Trachea midline. No JVD or lymphadenopathy. Supple, nontender, no meningeal signs. CARDIOVASCULAR: Regular rate and rhythm without murmurs, gallops, or rubs. RESPIRATORY: Clear to auscultation. Breath sounds equal bilaterally. No wheezes, rales, or rhonchi. No cough. No increased respiratory effort. No accessory muscle use. GASTROINTESTINAL: Abdomen soft, non-tender, nondistended. No hepato- splenomegaly, or palpable masses. No guarding. EXTREMITIES: No clubbing, cyanosis, or edema. No joint tenderness, effusion, or edema noted. BACK: Nontender without deformity or crepitance. No flank tenderness. NEURO: AOx3. Interactive flat affect SKIN: No rash or erythema on visible skin Initial Vital Signs Initial Vital Signs: Vital Signs Temperature 98.1 F 08/20/19 13:43 Pulse Rate 97 H 08/20/19 13:43 Respiratory Rate 20 08/20/19 13:43 Blood Pressure 173/110 H 08/20/19 13:43 Pulse Oximetry 100 08/20/19 13:43 <Melvin Watkins MD - Last Filed: 08/20/19 21:22> Initial Vital Signs Initial Vital Signs: Vital Signs Temperature 98.1 F 08/20/19 13:43 Pulse Rate 97 H 08/20/19 13:43 Respiratory Rate 20 08/20/19 13:43 Blood Pressure 173/110 H 08/20/19 13:43 Pulse Oximetry 100 08/20/19 13:43 Course <ALMA DELIA Alejandro- - Last Filed: 08/20/19 17:17> Orders Ordered: ED Orders 08/20/19 14:07 Consult to [facility] [place] Stat 08/20/19 15:38 Basic Metabolic Panel Stat Complete Blood Count AUTO DIFF Stat Hepatic (Liver) Panel Stat Discontinued Medications Gabapentin (Neurontin) 100 mg PO NOW ONE Stop: 08/20/19 16:46 Last Admin: 08/20/19 16:56 Dose: 100 mg Documented by: PEYMAN Vital Signs Vital signs: Vital Signs - 8 hr 08/20/19 13:43 08/20/19 16:25 08/20/19 17:30 Temperature 98.1 F Pulse Rate 97 H 70 74 Respiratory Rate 20 16 16 Blood Pressure 173/110 H Blood Pressure [Right Arm] 112/72 127/107 H Pulse Oximetry 100 98 99 <Melvin Watkins MD - Last Filed: 08/20/19 21:22> Orders Ordered: ED Orders 08/20/19 14:07 Consult to [facility] [place] Stat 08/20/19 15:38 Basic Metabolic Panel Stat Complete Blood Count AUTO DIFF Stat Hepatic (Liver) Panel Stat Discontinued Medications Gabapentin (Neurontin) 100 mg PO NOW ONE Stop: 08/20/19 16:46 Last Admin: 08/20/19 16:56 Dose: 100 mg Documented by: PEYMAN Vital Signs Vital signs: Vital Signs - 8 hr 08/20/19 13:43 08/20/19 16:25 08/20/19 17:30 Temperature 98.1 F Pulse Rate 97 H 70 74 Respiratory Rate 20 16 16 Blood Pressure 173/110 H Blood Pressure [Right Arm] 112/72 127/107 H Pulse Oximetry 100 98 99 MDM - Anxiety <Nat Veliz, RISK MANAGER-BC - Last Filed: 08/20/19 17:17> Lab Data Result diagrams: 08/20/19 15:38 08/20/19 15:38 Labs: Lab Results 08/20/19 08/20/19 08/20/19 Range/Units 15:38 15:38 15:38 WBC 7.6 (4.5-11.0) X10^3/uL RBC 4.29 (4.0-5.2) X10^6/uL Hgb 14.4 (12.0-16.0) g/dL Hct 41.8 (36-46) % MCV 97.4 (80-100) fL MCH 33.5 (26-34) PG MCHC 34.4 (30-36) % RDW 12.2 (11.6-14.8) % Plt Count 242 (150-400) X10^3/uL Neut % (Auto) 64.6 (50-75) % Lymph % (Auto) 28.5 (25-40) % [place] % (Auto) 6.0 (3-14) % Eos % (Auto) 0.4 L (2-4) % Baso % (Auto) 0.5 (0-2) % Neut # (Auto) 4900 (6517-4067) /uL Lymph # (Auto) 2200 (6300-0460) /uL [place] # (Auto) 500 (0-900) /uL Eos # (Auto) 0 (0-450) /uL Baso # (Auto) 0 (0-100) /uL Sodium 141 (137-145) mmol/L Potassium 4.2 (3.4-5.1) mmol/L Chloride 106 (98-107) mmol/L Carbon Dioxide 26 (22-32) mmol/L BUN 9 (7-17) mg/dL Creatinine 0.60 (0.52-1.04) mg/dL Estimated GFR > 60.0 (>60) mL/min BUN/Creatinine Ratio 15.0 (6-22) Glucose 78 (70-100) mg/dL Calcium 10.2 (8.4-10.2) mg/dL Total Bilirubin 0.7 (0.2-1.3) mg/dL Conjugated Bilirubin 0.0 (0.0-0.3) md/dL Unconjugated Bilirubin 0.5 (0.0-1.1) mg/dL AST 22 (14-36) IU/L ALT 16 (<35) IU/L Alkaline Phosphatase 86 (38-126) U/L Total Protein 7.0 (6.3-8.2) g/dL Albumin 4.6 (3.5-5.0) g/dL Globulin 2.4 (1.7-4.1) g/dL Albumin/Globulin Ratio 1.9 (1.0-2.8) MDM Narrative Medical decision making narrative: The patient is a 33-year-old female with history of burning mouth syndrome who presents with a chief complaint of panic attack, chronic pain etc.. She denies any suicidal thoughts or ideations. She is evaluated by Aleyda social worker aide while she is here in the emergency department. I discussed at length that she needs follow-up care, basic lab work was drawn per her request as she is concerned about infection, but she has no leukocytosis. She does state that she drinks increasingly due to pain, but her liver enzymes are within normal limits. She has not taken anything for her burning mouth syndrome, so as per up-to-date, I started her on gabapentin 100 mg p.o. b.i.d. which is safe for per epocrates. She has follow-up care scheduled Thursday. She does not want to take Vistaril as she is concerned about breast feeding. She did request that I start her on an antidepressant, but I will defer to primary care provider for that. As per social work, it is likely that follow-up care is very important for this patient, I discussed given her contact information for chronic pain management, that she needs to see her follow-up provider. Patient denies any suicidal thoughts or ideations upon discharge, but states that she will come back if she has any. No questions or concerns upon discharge, states understanding of return precautions as well as follow-up care. <Melvin Watkins MD - Last Filed: 08/20/19 21:22> Lab Data Labs: Lab Results 08/20/19 08/20/19 08/20/19 Range/Units 15:38 15:38 15:38 WBC 7.6 (4.5-11.0) X10^3/uL RBC 4.29 (4.0-5.2) X10^6/uL Hgb 14.4 (12.0-16.0) g/dL Hct 41.8 (36-46) % MCV 97.4 (80-100) fL MCH 33.5 (26-34) PG MCHC 34.4 (30-36) % RDW 12.2 (11.6-14.8) % Plt Count 242 (150-400) X10^3/uL Neut % (Auto) 64.6 (50-75) % Lymph % (Auto) 28.5 (25-40) % [place] % (Auto) 6.0 (3-14) % Eos % (Auto) 0.4 L (2-4) % Baso % (Auto) 0.5 (0-2) % Neut # (Auto) 4900 (8136-6197) /uL Lymph # (Auto) 2200 (9676-1935) /uL [place] # (Auto) 500 (0-900) /uL Eos # (Auto) 0 (0-450) /uL Baso # (Auto) 0 (0-100) /uL Sodium 141 (137-145) mmol/L Potassium 4.2 (3.4-5.1) mmol/L Chloride 106 (98-107) mmol/L Carbon Dioxide 26 (22-32) mmol/L BUN 9 (7-17) mg/dL Creatinine 0.60 (0.52-1.04) mg/dL Estimated GFR > 60.0 (>60) mL/min BUN/Creatinine Ratio 15.0 (6-22) Glucose 78 (70-100) mg/dL Calcium 10.2 (8.4-10.2) mg/dL Total Bilirubin 0.7 (0.2-1.3) mg/dL Conjugated Bilirubin 0.0 (0.0-0.3) md/dL Unconjugated Bilirubin 0.5 (0.0-1.1) mg/dL AST 22 (14-36) IU/L ALT 16 (<35) IU/L Alkaline Phosphatase 86 (38-126) U/L Total Protein 7.0 (6.3-8.2) g/dL Albumin 4.6 (3.5-5.0) g/dL Globulin 2.4 (1.7-4.1) g/dL Albumin/Globulin Ratio 1.9 (1.0-2.8) Discharge Plan Departure Patient Disposition: Home Clinical Impression: Burning mouth syndrome, Acute anxiety Discharge Date/Time: 08/20/19 17:30 Instructions: Burning Mouth Syndrome (BMS) (Alternative Therapy), Anxiety and Panic Attacks (Alternative Therapy), DI for Anxiety -- Adult, DI for Chronic Pain -- Adult Activity Restrictions/Additional Instructions: I sent in a prescription for gabapentin to [facility]. This can help nerve pain. Please follow-up with primary care provider as scheduled on Thursday. As discussed with Aleyda, the social worker aide, you may benefit from the [facility] program through [facility] as well as chronic pain specialist. I've given the contact information for some pain Clinics, but you will need to speak with your primary care provider regarding referral. Please come back to the emergency department for any acute concerns, such as thoughts of hurting herself or anybody else Prescriptions: New gabapentin 100 mg capsule 100 mg PO BID Qty: 20 RF: 0 No Action fluconazole [Diflucan] 150 mg tablet 150 mg PO Q3D Qty: 2 RF: 0 Referrals: [facility] [Provider Group] Jamar Crooks MD [Primary Care Provider] - Debby Ochoa MSW [[facility] Finder] -
[2019-08-20] MEDS: GABAPENTIN 100 MG CAPSULE PO (16:56)
[2019-08-20 17:30] VITALS: BP 127/107; PULSE 74; RESP 16; O2SAT 99
--- NOTE | 2019-08-26 08:51 | CM.SWNOTE ---
Late Entry/ CHESS INSTRUCTOR Note: This CHESS INSTRUCTOR requested 08.20.19 by ED provider Nat Veliz to meet w/Renee to assess and discuss resources. Renee was somewhat reserved w/this CHESS INSTRUCTOR during assessment and admitted she was fearful someone would call CPS to remove her children from her. This CHESS INSTRUCTOR had a lengthy conversation w/Renee which included encouragement and support for arriving to the ED to ask for help w/feelings of anxiety, hopelessness and isolation sec to long-term chronic pain in her mouth, increased tension between she and her spouse and daily stress from parenting two kids under 3 yo. Limited family support. Renee denied: thoughts of suicide, prior attempt, behaviors of self harm, and family h/o depression/anxiety and/or suicide. This CHESS INSTRUCTOR reviewed, briefly, strategies that might assist when Renee experienced increasing anxiety, which might help avoid a full blown panic attack; immediate temperature change, ice packs, going for a walk outside, questioning destructive perpetual thoughts and attempt distraction. Then encouraged Renee to get into her PCP to discuss anti anxiety medication. Also recommended Debby Ochoa through [facility] for counseling ,but explained that Renee would need to establish PCP care at [facility] to qualify for this. All recommendations were made keeping into consideration that Renee needed to take her children with her to every appt so focused on [place] resources. Reviewed above w/ Nat Veliz, Renee feels safe to return home but requests blood work to rule out any infection or something that might have increased my anxiety today ...This CHESS INSTRUCTOR suggested Renee leave w/medication that would assist in pain control for burning mouth syndrome and referrals be made to pain specialist, Debby Ochoa/S[facility]I through [facility], and f/u w/ PCP. This CHESS INSTRUCTOR provided [place] [facility] [place], Reneepepe diazative. RASHAD Romano Discharge Planning/Care Management CHESS INSTRUCTOR - Residential Mortgage Manager Assessment Start: 08/26/19 08:25 Freq: Status: Active Protocol: Document 08/26/19 08:25 FIDELIA (Rec: 08/26/19 08:48 FIDELIA [id number]) CHESS INSTRUCTOR/Residential Mortgage Manager Assessment Start date 08/20/19 Visit Start Time 12:00 End date 08/20/19 Visit End Time 15:30 Total time Care Management spent on 3.5 hours patient visit-in minutes Presenting Problem Arrived by pov w/ 9 month old baby after panic attack at home, at home with 2 yo. 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 Denies SI/prior attempt to this CHESS INSTRUCTOR although admits to RN that she sometimes thinks about going to sleep and not waking up Current Behavioral Health Provider(s) None Include Facility, Provider, Ph. # Psych. Hx Mental Health and Chemical None reported Dependency Family Hx of Behavioral Abuse None reported Psychiatric Hospitalizations (date(s)/ None reported location) Support System(s) Spouse (?) Renee admits that her thinks I should just get over it and she admits to feelings of loneliness and isolation, her family of origin and 's are not very supportive School/Work Stay at home mom Legal Matters - Outstanding Issues None reported Orientation (Person/Place/Time) Normal Affect Tearful, agitated Thought Content - Specify/Describe None Obsessions, Delusions, Hallucinations Thought Processes (Dquusmk-Biazbqkr-Ucfq Logical Aardbfuk-Jegfolqc-Gyoymxtjek- Wmvvotjjqfevoi-Hmmmxdn-Cspisvsumyss- Thought Blocking) Speech (Hxbdbx-Ubkv-Iwgngyl-Rapid-Soft- Normal Loud-Pressured) Motor (Xosakl-Jugmpqscb-Kuda-Other) Normal Insight (Present-Partially Present- Good insight overall Impaired) Judgement (Intact-Impaired) Jusgement intact overall Impulse Control (Adequate-Impaired) Adequate Memory (Hftrckcpv-Unrvrf-Miaqsj, Intact Impaired-Intact) Concentration (Intact-Impaired) Impaired, emotionally labile and overwhelmed, anxious Attention (Intact-Impaired) Intact Behavior (Appropriate-Inappropriate) Appropriate Additional Comment Renee does not sleep well, she admits to not eating well sec to her burning mouth syndrome, she drinks one glass of wine at night after kids have fallen asleep which she describes as her only time her pain and anxiety are relieved Suicidal Ideation (Plan) No Homicidal Ideation (Plan) No Comment Admits to RN thoughts of going to sleep and not waking up thoughts/feelings of hopelesness and isolation. Intervention See narrative.
== END 2019-08-20 17:30 | disposition home or self-care (01) ==
PROVIDERS: Emergency Provider Nurse Practitioner Family; PCP Family Medicine
DX: K14.6 Glossodynia (principal); F41.9 Anxiety disorder, unspecified
CPT/HCPCS: 36415; 80048; 80076; 85025; 99283

== ENCOUNTER → 2019-10-18 12:40 | Outpatient (CLI) | payer OTHER, MEDICAID, SELFPAY | PROVIDERS: PCP Family Medicine; Visit Provider Obstetrics & Gynecology | DX: B37.9 Candidiasis, unspecified (principal); B37.3 Candidiasis of vulva and vagina | CPT/HCPCS: 87102; 87480; 87510; 87660 ==

== ENCOUNTER → 2020-03-21 19:22 | Outpatient (ROUT) | payer OTHER, MEDICAID, SELFPAY ==
[2020-03-23 14:18] LABS: Candida species Negative (Negative); Gardnerella vaginalis Negative (Negative); Trichomoas vaginalis Negative (Negative)
== END ==
PROVIDERS: PCP Family Medicine; Visit Provider Obstetrics & Gynecology
DX: B37.3 Candidiasis of vulva and vagina (principal); N89.8 Other specified noninflammatory disorders of vagina
CPT/HCPCS: 87480; 87510; 87660

== ENCOUNTER → 2020-11-19 13:36 | Outpatient (CLI) | payer OTHER, MEDICAID, SELFPAY ==
--- NOTE | 2020-11-19 13:38 | DI.US.S_ITS ---
PROCEDURE: US ABDOMEN LIMITED INDICATIONS: RUQ PAIN TECHNIQUE: Real-time scanning was performed of the abdominal and retroperitoneal organs, with image documentation. COMPARISON: None. FINDINGS: Liver: Liver is normal in size and homogeneous in echotexture. Gallbladder: There is mild gallbladder wall thickening. No pericholecystic fluid. No sonographic Bach sign. No gallstone is seen. Biliary ducts: Intrahepatic bile ducts are non-dilated. Extrahepatic bile duct caliber measures 2.2 mm. Normal is 6-7 mm or less in diameter, or 10 mm or less post-cholecystectomy. Pancreas: Visualized portions of the pancreas are sonographically normal. IMPRESSION: 1. Contracted gallbladder with questionable gallbladder wall thickening. No definite sonographic evidence of acute cholecystitis. No gallstone is seen. 2. No biliary ductal dilatation. Dictated by: Robinson Bhakta M.D. on 11/19/2020 at 17:05 Approved by: Robinson Bhakta M.D. on 11/19/2020 at 17:06
== END ==
PROVIDERS: PCP Nurse Practitioner Family; Referring Provider Nurse Practitioner Family; Visit Provider Nurse Practitioner Family
DX: R10.11 Right upper quadrant pain (principal)
CPT/HCPCS: 76705

== ENCOUNTER 2021-09-25 17:56 | Emergency (ER) | payer OTHER, MEDICAID, SELFPAY ==
[2021-09-25 18:01] VITALS: BP 175/117; PULSE 89; RESP 20; TEMP 36.6; O2SAT 100; BMI 25.7
[2021-09-25 18:07] VITALS: BP 162/101
[2021-09-25 18:38] LABS: Add Manual Diff / Slide Review NO; Basophils Absolute Auto 100 /uL (0-100); Basophils Percent Auto 0.6 % (0-2); Eosinophils Absolute Auto 0 /uL (0-450); Eosinophils Percent Auto 0.3 % (2-4); Hematocrit 43.2 % (36-46); Hemoglobin 14.8 g/dL (12.0-16.0); Lymphocytes Absolute Auto 2200 /uL (1100-4500); Lymphocytes Percent Auto 25.6 % (25-40); Mean Corpuscular HGB Conc 34.3 % (30-36); Mean Corpuscular Hemoglobin 34.2 PG (26-34); Mean Corpuscular Volume 99.7 fL (80-100); Monocytes Absolute Auto 500 /uL (0-900); Monocytes Percent Auto 5.9 % (3-14); Neutrophils Absolute Auto 5900 /uL (1500-7000); Neutrophils Percent Auto 67.6 % (50-75); Platelet Count 265 X10^3/uL (150-400); Red Blood Cell Count 4.33 X10^6/uL (4.0-5.2); Red Cell Distribution Width 12.4 % (11.6-14.8); White Blood Cell Count 8.8 X10^3/uL (4.5-11.0)
[2021-09-25 18:58] LABS: Alanine Aminotransferase 31 IU/L (<35); Albumin 4.8 g/dL (3.5-5.0); Albumin Globulin Ratio 1.5 (1.0-2.8); Alkaline Phosphatase 72 U/L (38-126); Aspartate Aminotransferase 43 IU/L (14-36); BUN Creatinine Ratio 24.6 (6-22); Bilirubin Total 0.6 mg/dL (0.2-1.3); Blood Urea Nitrogen 16 mg/dL (7-17); Calcium 9.8 mg/dL (8.4-10.2); Carbon Dioxide 25 mmol/L (22-32); Chloride 102 mmol/L (98-107); Estimated Glomerular Filt Rate > 60.0 mL/min (>60); Globulin 3.3 g/dL (1.7-4.1); Glucose 95 mg/dL (70-100); HEMOLYSIS < 15 (0-50); Lipase 50 U/L (23-300); Potassium 4.1 mmol/L (3.4-5.1); Sodium 136 mmol/L (137-145); Total Protein 8.1 g/dL (6.3-8.2)
[2021-09-25 23:34] VITALS: PULSE 79; O2SAT 99
[2021-09-25 23:35] VITALS: BP 189/93; PULSE 89; O2SAT 100
--- NOTE | 2021-09-25 23:40 | ED.CHESTPAIN ---
HPI - Chest Pain General Chief Complaint: Chest Pain Stated Complaint: chest pain, upper abdominal pain, pain in ribs Time Seen by Provider: 09/25/21 23:29 Source: patient Mode of arrival: Ambulatory Limitations: no limitations History of Present Illness HPI narrative: 35-year-old female nonsmoker presents with a chief complaint of gradually worsening bilateral rib pain for at least the past week or so. She states that she had been in her normal state of health when she was reaching forward and felt a sudden pop and painful sensation in her right lower lateral ribs. Her pain since then has been made worse with motion and improves with rest and had been getting better until another episode in which she was in her tub and reaching forward to shave her legs and this seemed to exacerbate the pain significantly again. Finally, she was in her struck and reaching over the seat and felt another pulling sensation in her lower ribs. She woke up this morning and states that the pain is the worst it has been and is along the lower ribs and wrap around both sides to her back. She states it hurts to take a deep breath. She denies pain in her abdomen and has had no nausea or vomiting. She denies any change in her diet and has had no fever or chills. She denies any change in bowel habits or urinary complaints. Related Data Home Medications Medication Instructions Recorded Confirmed sertraline 25 mg tablet (Zoloft) 25 mg PO DAILY 10/18/19 11/19/20 Previous Rx's Medication Instructions Recorded gabapentin 100 mg capsule 100 mg PO BID #20 cap 08/20/19 estradiol (Estrace) 0.3 g VAGINAL DAILY #42.5 g 10/09/20 estradiol (Estring) 1 vag ring VAGINAL X2COASIK #1 ea 10/09/20 nystatin-triamcinolone 100,000 1 applic TOPICAL BID #30 g 10/09/20 unit/gram-0.1 % topical ointment clobetasol 0.05 % topical ointment 1 applic TOPICAL .COMPLEX #30 g 02/26/21 fluconazole 150 mg tablet 150 mg PO ONCE #2 tab 02/26/21 (Diflucan) Allergies Allergy/AdvReac Type Severity Reaction Status Date / Time No Known Drug Allergies Allergy Verified 11/19/20 14:53 Review of Systems Review of Systems Narrative: GENERAL: Denies chills, fatigue, malaise, fever, sweats. HEENT: Denies sinus pain, ear pain, sore throat, difficulty swallowing, dizziness. RESPIRATORY: Denies dyspnea, cough, wheezing, hemoptysis, sputum. CARDIOVASCULAR: See HPI GASTROINTESTINAL: Denies nausea, vomiting, abdominal pain, diarrhea, constipation, melena. : Denies dysuria, frequency, incontinence, hematuria, urinary retention. MUSCULOSKELETAL: denies weakness, joint pain, or bony pain SKIN: Denies rash, skin lesions, or other NEUROLOGIC: Denies weakness, headache, numbness, change in speech, confusion, seizures, incoordination. PSYCHIATRIC: No concerning psychosocial issues. 12 point review of systems is negative except for those stated above Patient History Medical History (Updated 09/26/21 @ 03:41 by Virgil Grove DO) Hx of migraines Surgical History History of third molar tooth extraction No history of previous surgery Status post laparoscopy Social History Smoking Status: Never smoker Smoking Status: Never smoker alcohol intake frequency: 3 or more drinks per day Substance Use Type: does not use Exam Narrative Exam Narrative: GENERAL: [35 year old patient appears stated age. Well-developed patient, in mild distress. Tearful, obviously uncomfortable and concerned HEAD: Atraumatic. Normocephalic. EYES: Pupils equal round and reactive. Extraocular motions intact. No scleral icterus. No injection or drainage. ENT: Nose without bleeding, purulent drainage. Throat without erythema, tonsillar hypertrophy or exudate. Airway patent. NECK: Trachea midline. Non tender CARDIOVASCULAR: Regular rate and rhythm without murmurs, gallops, or rubs. Tender on lower lateral ribs bilaterally RESPIRATORY: Clear to auscultation. Breath sounds equal bilaterally. No wheezes, rales, or rhonchi. GASTROINTESTINAL: Abdomen soft, non-tender, nondistended. EXTREMITIES: No edema or joint tenderness. BACK: Nontender without deformity or crepitance. No flank tenderness. NEURO: AOx3. SKIN: No rash or erythema of visible areas Initial Vital Signs Initial Vital Signs: Vital Signs Temperature 97.9 F 09/25/21 18:01 Pulse Rate 89 09/25/21 18:01 Respiratory Rate 20 09/25/21 18:01 Blood Pressure 175/117 H 09/25/21 18:01 Pulse Oximetry 100 09/25/21 18:01 Course Orders Ordered: ED Orders 09/25/21 23:41 XR chest 2V Stat 09/26/21 01:20 D Dimer Stat 09/26/21 01:42 CT angio chest PE protocol Stat Discontinued Medications Cyclobenzaprine HCl (Cyclobenzaprine 10 Mg Prepack) 1 bottle MISC SEEINSTR ONE Stop: 09/26/21 03:38 Last Admin: 09/26/21 03:51 Dose: 1 bottle Documented by: Ketorolac Tromethamine (Ketorolac 30 Mg/Ml Vial) 15 mg IV NOW ONE Stop: 09/26/21 00:55 Last Admin: 09/26/21 01:12 Dose: 15 mg Documented by: ANUP Oxycodone/Acetaminophen (Oxycodone/Apap 5/325 Prepack) 1 bottle MISC SEEINSTR ONE Stop: 09/26/21 03:38 Last Admin: 09/26/21 03:51 Dose: 1 bottle Documented by: Vital Signs Vital signs: Vital Signs - 8 hr 09/25/21 23:34 09/25/21 23:35 09/25/21 23:45 Pulse Rate 79 89 77 Blood Pressure 189/93 H 144/99 H Pulse Oximetry 99 100 99 09/26/21 00:00 09/26/21 00:30 Pulse Rate 74 81 Blood Pressure Pulse Oximetry 100 96 MDM - Chest Pain Lab Data Result diagrams: 09/25/21 18:20 09/25/21 18:20 Labs: Lab Results 09/25/21 09/25/21 09/26/21 Range/Units 18:20 18:20 01:20 WBC 8.8 (4.5-11.0) X10^3/uL RBC 4.33 (4.0-5.2) X10^6/uL Hgb 14.8 (12.0-16.0) g/dL Hct 43.2 (36-46) % MCV 99.7 (80-100) fL MCH 34.2 H (26-34) PG MCHC 34.3 (30-36) % RDW 12.4 (11.6-14.8) % Plt Count 265 (150-400) X10^3/uL Neut % (Auto) 67.6 (50-75) % Lymph % (Auto) 25.6 (25-40) % Reeves % (Auto) 5.9 (3-14) % Eos % (Auto) 0.3 L (2-4) % Baso % (Auto) 0.6 (0-2) % Neut # (Auto) 5900 (9948-5583) /uL Lymph # (Auto) 2200 (6696-4574) /uL Reeves # (Auto) 500 (0-900) /uL Eos # (Auto) 0 (0-450) /uL Baso # (Auto) 100 (0-100) /uL D-Dimer 350 H (<230) ng/mL Sodium 136 L (137-145) mmol/L Potassium 4.1 (3.4-5.1) mmol/L Chloride 102 (98-107) mmol/L Carbon Dioxide 25 (22-32) mmol/L BUN 16 (7-17) mg/dL Creatinine 0.65 (0.52-1.04) mg/dL Estimated GFR > 60.0 (>60) mL/min BUN/Creatinine Ratio 24.6 H (6-22) Glucose 95 (70-100) mg/dL Calcium 9.8 (8.4-10.2) mg/dL Total Bilirubin 0.6 (0.2-1.3) mg/dL AST 43 H (14-36) IU/L ALT 31 (<35) IU/L Alkaline Phosphatase 72 (38-126) U/L Total Protein 8.1 (6.3-8.2) g/dL Albumin 4.8 (3.5-5.0) g/dL Globulin 3.3 (1.7-4.1) g/dL Albumin/Globulin Ratio 1.5 (1.0-2.8) Lipase 50 (23-300) U/L Imaging Data CT scan - chest: Radiologist's Impression: No PE or other acute intrathoracic abnormality Hepatic Steatosis Suspect minimal GB inflammatory change MDM Narrative Medical decision making narrative: Patient with reproducible musculoskeletal type pain worsened by 3 notable activities. She denies any specific trauma. She has had no shortness of breath but does complain of a pleuritic type chest pain and shortness of breath which she attributes to pain. She denies any GI symptoms such as nausea or vomiting. Extensive discussion and examination regarding the pain as it pertains to her ribs or abdomen. When the finger slide off of the ribs into the costal margin there is no pain on the abdomen itself. Diagnoses such as gallbladder, pancreatitis and bowel issues were considered but thought unlikely given lack of lab findings or exam components consistent with this. Furthermore, she denies any provocation with eating or drinking nor radiation to the midline of her back. Pulmonary embolism is considered but thought unlikely after a CT angiogram demonstrates no significant findings. Though the CT does show some minimal gallbladder inflammatory change she has no elevated white blood cell count, no provocation with ear drinking, no pain on palpation of her right upper quadrant. Discharge Plan Departure Patient Disposition: Home Clinical Impression: Atypical chest pain Instructions: DI for Atypical Chest Pain Activity Restrictions/Additional Instructions: *You have been diagnosed with [atypical chest pain. As we discussed at length your history, physical exam, labs, EKG and imaging are very reassuring. There is no evidence of pneumonia, collapsed lung, blood clot in your chess, infected gallbladder or other diagnosis that would require surgery, admission or other specific treatment *What to do: *Please continue to take your regular medications as directed. [ ] New medication prescriptions sent to your pharmacy: [ ] [ ] New medication written as a paper prescription [ ] No new medications given *Please follow up with your primary care provider on Thursday as planned. Let them know you were seen in the Emergency Department and that I sent over a copy of the note. *Return to Emergency Department if you should have any new, worsening or concerning symptoms, such as [fever greater than 101 F, shaking chills, worsening pain, persistent vomiting or other bothersome symptoms] Prescriptions: No Action fluconazole [Diflucan] 150 mg tablet 150 mg PO ONCE Qty: 2 0RF Rx Instructions: Repeat in 5 days if symptoms persist clobetasol 0.05 % ointment 1 applic topical .COMPLEX Qty: 30 0RF Rx Instructions: 1 applic topical; Apply to affected area daily for 10 days and then twice a week sertraline [Zoloft] 25 mg tablet 25 mg PO DAILY 0RF nystatin-triamcinolone 100,000-0.1 unit/gram-% ointment 1 applic topical BID Qty: 30 0RF Rx Instructions: Apply to ext genitalia twice a day for 2 wks and then daily for a total of 3 wks Estring 2 mg (7.5 mcg /24 hour) ring 1 vag ring vaginal [id number] Qty: 1 3RF estradiol [Estrace] 0.01 % (0.1 mg/gram) cream 0.3 g vaginal DAILY Qty: 42.5 0RF Rx Instructions: Apply small amount to the external genitalia daily gabapentin 100 mg capsule 100 mg PO BID Qty: 20 0RF Referrals: Pawan Boyd MD [Primary Care Provider] -
--- NOTE | 2021-09-25 23:41 | DI.RAD.S_ITS ---
PROCEDURE: XR CHEST 2V INDICATIONS: chest and rib pain TECHNIQUE: 2 views of the chest were acquired. COMPARISON: None. FINDINGS: Surgical changes and devices: None. Lungs and pleura: Lungs are clear. No pleural effusions or pneumothorax. Mediastinum: Mediastinal contours are normal. Heart size is normal. Bones and chest wall: No suspicious bony abnormalities. Soft tissues appear unremarkable. IMPRESSION: No acute cardiopulmonary abnormalities or focal airspace disease. No acute osseous abnormalities or acute, displaced rib fractures identified. Dictated by: Sid Jack M.D. on 09/26/2021 at 0:11 Approved by: Sid Jack M.D. on 09/26/2021 at 0:12
[2021-09-25 23:45] VITALS: BP 144/99; PULSE 77; O2SAT 99
[2021-09-26] VITALS (9 sets, daily range): BP systolic 167; BP diastolic 97; PULSE 72–96; O2SAT 95–100
[2021-09-26] MEDS: KETOROLAC 30 MG/ML VIAL 15 MG IV (01:12)
[2021-09-26 01:34] LABS: D Dimer 350 ng/mL (<230)
--- NOTE | 2021-09-26 01:42 | DI.CT.S_ITS ---
PROCEDURE: CT ANGIO CHEST PE PROTOCOL INDICATIONS: chest pain, short of breath, tachycardia, critical dimer TECHNIQUE: After the administration of intravenous contrast, 2 mm thick sections acquired from the pulmonary apices to the posterior costophrenic angles. 3-dimensional maximum intensity projection (MIP) coronal and sagittal reformats were then acquired through the thorax. For radiation dose reduction, the following was used: automated exposure control, adjustment of mA and/or kV according to patient size. COMPARISON: None. FINDINGS: Image quality: Excellent. Pulmonary arteries: Pulmonary arteries are normal in size, and demonstrate no intraluminal filling defects to suggest central pulmonary embolism. Lungs and pleura: Atelectasis noted in the dependent portions of the lungs. No pleural effusions or pneumothorax. Central and peripheral airways are patent. Mediastinum: Heart size is normal, without pericardial effusion. No mediastinal or hilar adenopathy. Thoracic aorta is normal in caliber and enhancement. Esophagus is normal in caliber, without hiatal hernia. Bones and chest wall: No suspicious bony lesions. Ribs and thoracic spine appear intact throughout. Thyroid gland is within normal limits. No axillary or supraclavicular adenopathy. Abdomen: Diffuse fatty infiltration of the visualized liver. 2.5 centimeter cyst noted in the left lobe of the liver adjacent to the gallbladder fossa. Visualized upper abdominal solid organs otherwise appear normal in the early arterial phase of enhancement. IMPRESSION: 1. No pulmonary embolus. 2. No lung consolidation or pleural effusions. Dictated by: Lois Kelley MD, PhD on 09/26/2021 at 7:03 Approved by: Lois Kelley MD, PhD on 09/26/2021 at 7:07
[2021-09-26] MEDS: CYCLOBENZAPRINE 10 MG PREPACK 1 BOTTLE MISC (03:51)
[2021-09-26] MEDS: OXYCODONE/APAP 5/325 PREPACK 1 BOTTLE MISC (03:51)
== END 2021-09-26 04:03 | disposition home or self-care (01) ==
PROVIDERS: Emergency Provider Emergency Medicine; PCP Family Medicine
DX: R07.89 Other chest pain (principal)
CPT/HCPCS: 36415; 71046; 71275; 80053; 83690; 85025; 85379; 93005; 93010; 96374; 99284; J1885; Q9967

== ENCOUNTER → 2022-02-11 11:48 | Outpatient (CLI) | payer OTHER, MEDICAID, SELFPAY ==
--- NOTE | 2022-02-11 11:50 | DI.RAD.S_ITS ---
PROCEDURE: XR FOOT RT MIN 3V INDICATIONS: right foot pain TECHNIQUE: 3 views of the foot were acquired. COMPARISON: None. FINDINGS: Bones: No fractures or dislocations. No suspicious bony lesions. Soft tissues: No tibiotalar joint effusion. Achilles tendon appears normal. IMPRESSION: No radiographic abnormalities. Dictated by: Holly Hancock M.D. on 02/11/2022 at 16:18 Approved by: Holly Hancock M.D. on 02/11/2022 at 16:18
== END ==
PROVIDERS: PCP Family Medicine; Referring Provider Family Medicine; Visit Provider Family Medicine
DX: M79.671 Pain in right foot (principal)
CPT/HCPCS: 73630

== ENCOUNTER → 2023-02-05 12:56 | Outpatient (CLI) | payer OTHER, MEDICAID, SELFPAY ==
[2023-02-05 14:09] LABS: Add Manual Diff / Slide Review NO; Basophils Absolute Auto 0 /uL (0-100); Basophils Percent Auto 0.6 % (0-2); Eosinophils Absolute Auto 0 /uL (0-450); Eosinophils Percent Auto 0.5 % (2-4); Hematocrit 40.5 % (36-46); Hemoglobin 13.8 g/dL (12.0-16.0); Lymphocytes Absolute Auto 1900 /uL (1100-4500); Lymphocytes Percent Auto 27.9 % (25-40); Mean Corpuscular HGB Conc 34.2 % (30-36); Mean Corpuscular Hemoglobin 33.8 PG (26-34); Monocytes Absolute Auto 400 /uL (0-900); Monocytes Percent Auto 5.2 % (3-14); Neutrophils Absolute Auto 4500 /uL (1500-7000); Neutrophils Percent Auto 65.8 % (50-75); Platelet Count 251 X10^3/uL (150-400); Red Blood Cell Count 4.09 X10^6/uL (4.0-5.2); Red Cell Distribution Width 11.8 % (11.6-14.8); White Blood Cell Count 6.9 X10^3/uL (4.5-11.0)
[2023-02-05 14:18] LABS: Alanine Aminotransferase 20 IU/L (<35); Albumin 4.4 g/dL (3.5-5.0); Albumin Globulin Ratio 1.7 (1.0-2.8); Alkaline Phosphatase 46 U/L (38-126); Aspartate Aminotransferase 23 IU/L (14-36); BUN Creatinine Ratio 10.3 (6-22); Bilirubin Total 0.3 mg/dL (0.2-1.3); Blood Urea Nitrogen 7 mg/dL (7-17); Calcium 9.5 mg/dL (8.4-10.2); Carbon Dioxide 25 mmol/L (22-32); Chloride 103 mmol/L (98-107); Cholesterol 239 mg/dL (140-199); Estimated Glomerular Filt Rate > 60 mL/min (>60); Globulin 2.6 g/dL (1.7-4.1); Glucose 84 mg/dL (70-100); HDL Cholesterol 37 mg/dL (40-60); HEMOLYSIS < 15 (0-50); LDL Cholesterol Calculated 182 mg/dL (<100); Potassium 4.3 mmol/L (3.4-5.1); Sodium 137 mmol/L (137-145); Triglycerides 99 mg/dL (35-150)
[2023-02-05 14:45] LABS: TSH w/ Reflex to FT4 1.15 uIU/mL (0.47-4.68)
== END ==
PROVIDERS: PCP Family Medicine; Referring Provider Family Medicine; Visit Provider Family Medicine
DX: F41.8 Other specified anxiety disorders (principal)
CPT/HCPCS: 36415; 80053; 80061; 84443; 85025

== ENCOUNTER 2023-06-17 12:37 | Emergency (ER) | payer OTHER, MEDICAID, SELFPAY ==
[2023-06-17] VITALS (14 sets, daily range): BP systolic 120–170; BP diastolic 76–102; PULSE 67–115; RESP 16–25; TEMP 37.1; O2SAT 98–100; BMI 22.3
--- NOTE | 2023-06-17 12:46 | DI.RAD.S_ITS ---
PROCEDURE: XR CHEST 1V INDICATIONS: chest pain TECHNIQUE: One view of the chest was acquired. COMPARISON: [facility], CR, XR CHEST 2V, 09/25/2021, 23:34. FINDINGS: Surgical changes and devices: None. Lungs and pleura: Lungs are clear. No pleural effusions or pneumothorax. Mediastinum: Mediastinal contours appear normal. Heart size is normal. Bones and chest wall: No suspicious bony lesions. Overlying soft tissues appear unremarkable. IMPRESSION: Portable chest within normal limits for age. Approved by: Abram Nolasco M.D. on 06/17/2023 at 12:55
[2023-06-17 13:00] LABS: Add Manual Diff / Slide Review NO; Basophils Absolute Auto 0 /uL (0-100); Basophils Percent Auto 0.3 % (0-2); Eosinophils Absolute Auto 0 /uL (0-450); Eosinophils Percent Auto 0.3 % (2-4); Hematocrit 41.5 % (36-46); Hemoglobin 14.3 g/dL (12.0-16.0); Lymphocytes Absolute Auto 3200 /uL (1100-4500); Mean Corpuscular HGB Conc 34.6 % (30-36); Mean Corpuscular Hemoglobin 35.2 PG (26-34); Monocytes Absolute Auto 400 /uL (0-900); Monocytes Percent Auto 5.8 % (3-14); Neutrophils Absolute Auto 3900 /uL (1500-7000); Neutrophils Percent Auto 51.6 % (50-75); Platelet Count 318 X10^3/uL (150-400); Red Blood Cell Count 4.07 X10^6/uL (4.0-5.2); Red Cell Distribution Width 15.8 % (11.6-14.8); White Blood Cell Count 7.5 X10^3/uL (4.5-11.0)
[2023-06-17 13:07] LABS: INR 1.2 (0.9-1.3); Prothrombin Time 13.3 SECONDS (10.1-12.7)
[2023-06-17 13:09] LABS: PTT Partial Thromboplastin Tim 33 SECONDS (26-36)
[2023-06-17 13:11] LABS: Alanine Aminotransferase 21 IU/L (<35); Albumin 4.8 g/dL (3.5-5.0); Albumin Globulin Ratio 1.4 (1.0-2.8); Alkaline Phosphatase 77 U/L (38-126); Aspartate Aminotransferase 25 IU/L (14-36); BUN Creatinine Ratio 15.2 (6-22); Bilirubin Total 0.7 mg/dL (0.2-1.3); Blood Urea Nitrogen 10 mg/dL (7-17); Calcium 9.9 mg/dL (8.4-10.2); Carbon Dioxide 19 mmol/L (22-32); Chloride 107 mmol/L (98-107); Creatine Kinase 122 U/L (30-135); Estimated Glomerular Filt Rate > 60 mL/min (>60); Globulin 3.4 g/dL (1.7-4.1); Glucose 106 mg/dL (70-100); HEMOLYSIS < 15 (0-50); Lipase 91 U/L (23-300); Magnesium 2.1 mg/dL (1.6-2.3); Potassium 3.3 mmol/L (3.4-5.1); Sodium 140 mmol/L (137-145); Total Protein 8.2 g/dL (6.3-8.2)
[2023-06-17 13:22] LABS: Troponin I < 0.012 ng/mL (0.01-0.034)
[2023-06-17] MEDS: SODIUM CHLORIDE 0.9% 1,000 ML 1000 ML IV (15:28)
[2023-06-17] MEDS: ACETAMINOPHEN 325 MG TABLET 975 MG PO (15:29)
[2023-06-17 16:17] LABS: Bacteria Urine Few (2-10); Culture Indicated Urine Specimen Cultured; RBC Urine 0-1/HPF (0-5/HPF); Squamous Epithelial Cell Urine 10-30 /HPF (0-5/HPF); WBC Urine 5-10/HPF (0-5/HPF)
[2023-06-17 18:22] LABS: Bacteria Urine Occasional (0-1); Culture Indicated Urine Cult Not Indicated; RBC Urine 0-1/HPF (0-5/HPF); Squamous Epithelial Cell Urine 0-1 /HPF (0-5/HPF); WBC Urine 0-1/HPF (0-5/HPF)
--- NOTE | 2023-06-17 18:37 | ED.CHESTPAIN ---
HPI - Chest Pain <Elvi Alvarez PA-C - Last Filed: 06/17/23 18:46> General Chief Complaint: Chest Pain Stated Complaint: CHEST PAIN. PRESSURE IN CHEST,SOB Time Seen by Provider: 06/17/23 13:52 Source: patient Mode of arrival: Ambulatory Limitations: no limitations History of Present Illness HPI narrative: Patient is a 37-year-old female who presents with sinus pressure and left chest pain, feeling short of breath x3 days. She has had no fever but does endorse chills, states I know I have an infection somewhere. She reports feeling winded after walking up her block, which is unusual for her, and feels significant pressure in her forehead and maxilla. She has tried taking Tylenol occasionally but this isn't helping. She is accompanied by her mom and daughter. She currently has a IUD, no recent travel or immobilization, no history of blood clots. Related Data Home Medications Medication Instructions Recorded Confirmed sertraline 25 mg tablet (Zoloft) 25 mg PO DAILY 10/18/19 11/19/20 Previous Rx's Medication Instructions Recorded gabapentin 100 mg capsule 100 mg PO BID #20 caps 08/20/19 estradiol 0.01% (0.1 mg/gram) 0.3 g vaginal DAILY #42.5 grams 10/09/20 vaginal cream (Estrace) estradiol 2 mg (7.5 mcg/24 hour) 1 vag ring vaginal O4DMUISM #1 ea 10/09/20 vaginal ring (Estring) nystatin-triamcinolone 100,000 1 applic topical BID #30 grams 10/09/20 unit/gram-0.1 % topical ointment clobetasol 0.05 % topical ointment 1 applic topical .COMPLEX #30 grams 02/26/21 fluconazole 150 mg tablet 150 mg PO ONCE #2 tabs 02/26/21 (Diflucan) Allergies Allergy/AdvReac Type Severity Reaction Status Date / Time No Known Drug Allergies Allergy Verified 11/19/20 14:53 Review of Systems <Elvi Alvarez PA-C - Last Filed: 06/17/23 18:46> Review of Systems ROS Unobtainable: All systems reviewed & are unremarkable except as noted in HPI and below Patient History <Elvi Alvarez PA-C - Last Filed: 06/17/23 18:46> Medical History Hx of migraines Surgical History No history of previous surgery Status post laparoscopy History of third molar tooth extraction Social History Smoking Status: Never smoker Smoking Status: Never smoker alcohol intake frequency: 0-2 drinks per day Substance Use Type: marijuana Exam <Elvi Alvarez PA-C - Last Filed: 06/17/23 18:46> Narrative Exam Narrative: GENERAL: 37 year old patient appears stated age. Well-developed patient, appears anxious. NEURO: AOx3. HEAD: Atraumatic. Normocephalic. EYES: Pupils equal round and reactive. Extraocular motions intact. No scleral icterus. No injection or drainage. ENT: Nose without bleeding or purulent drainage. Throat without erythema, tonsillar hypertrophy or exudate. Airway patent. NECK: Trachea midline. Non tender CARDIOVASCULAR: Regular rate and rhythm without murmurs, gallops, or rubs. RESPIRATORY: Clear to auscultation. Breath sounds equal bilaterally. No wheezes, rales, or rhonchi. GASTROINTESTINAL: Abdomen soft, non-tender, nondistended. EXTREMITIES: No edema or joint tenderness. SKIN: No rash or erythema of visible areas Initial Vital Signs Initial Vital Signs: Vital Signs Temperature 98.8 F 06/17/23 12:42 Pulse Rate 92 H 06/17/23 12:42 Respiratory Rate 16 06/17/23 12:42 Blood Pressure 170/94 H 06/17/23 12:42 Pulse Oximetry 100 06/17/23 12:42 Oxygen Delivery Method Room Air 06/17/23 12:42 <Sadiq Mckinney MD - Last Filed: 06/17/23 18:56> Initial Vital Signs Initial Vital Signs: Vital Signs Temperature 98.8 F 06/17/23 12:42 Pulse Rate 92 H 06/17/23 12:42 Respiratory Rate 16 06/17/23 12:42 Blood Pressure 170/94 H 06/17/23 12:42 Pulse Oximetry 100 06/17/23 12:42 Oxygen Delivery Method Room Air 06/17/23 12:42 Scores <Elvi Alvarez PA-C - Last Filed: 06/17/23 18:46> Wells' Criteria for PE Clinical signs and symptoms of DVT: No PE is #1 Dx or equally likely: No Heart rate > 100: Yes Immobilization at least 3 days or surg in previous 4 weeks: No History of PE or DVT: No Hemoptysis: No Malignancy w/Treatment within 6 months or palliative: No Wells' PE Score total: 1.5 <Sadiq Mckinney MD - Last Filed: 06/17/23 18:56> Wells' Criteria for PE Wells' PE Score total: 1.5 Course <Elvi Alvarez PA-C - Last Filed: 06/17/23 18:46> Orders Ordered: ED Orders 06/17/23 12:46 XR chest 1V Stat 06/17/23 12:50 Complete Blood Count AUTO DIFF Stat Comprehensive Metabolic Panel Stat Lipase Stat Magnesium Stat PTT Partial Thromboplastin Damien Stat Prothrombin Time INR Stat Troponin & CK Cardiac Panel Stat 06/17/23 13:02 EKG-12 Lead Stat 06/17/23 15:33 Urine Culture Stat Urine Microscopic Stat 06/17/23 17:50 Urine Microscopic Stat Discontinued Medications Acetaminophen (Acetaminophen 325 Mg Tablet) 975 mg PO NOW ONE Stop: 06/17/23 15:17 Last Admin: 06/17/23 15:29 Dose: 975 mg Documented By: FRANCISCA Sodium Chloride (Normal Saline 0.9%) 1,000 mls @ 1,000 mls/hr IV BOLUS ONE Stop: 06/17/23 16:15 Last Infusion: 06/17/23 16:40 Dose: Infused Documented By: Admin: 06/17/23 15:28 Dose: 1,000 mls/hr Documented By: FRANCISCA Pseudoephedrine HCl (Pseudoephedrine 30 Mg Tablet) 60 mg PO Q6HR PRN PRN Reason: Congestion Vital Signs Vital signs: Vital Signs - 8 hr 06/17/23 12:42 06/17/23 14:16 06/17/23 14:18 Temperature 98.8 F Pulse Rate 92 H 115 H 83 Respiratory Rate 16 Blood Pressure 170/94 H Pulse Oximetry 100 100 100 Oxygen Delivery Method Room Air 06/17/23 14:18 06/17/23 14:30 06/17/23 14:30 Temperature Pulse Rate 86 Respiratory Rate 25 H Blood Pressure 156/96 H 149/96 H Pulse Oximetry 100 Oxygen Delivery Method 06/17/23 15:00 06/17/23 15:00 06/17/23 15:35 Temperature Pulse Rate 101 H 98 H Respiratory Rate 23 20 Blood Pressure 144/102 H Pulse Oximetry 100 99 Oxygen Delivery Method 06/17/23 15:37 06/17/23 15:37 06/17/23 15:45 Temperature Pulse Rate 84 Respiratory Rate 18 Blood Pressure 138/80 143/91 H Pulse Oximetry 98 Oxygen Delivery Method 06/17/23 15:45 06/17/23 16:00 06/17/23 16:00 Temperature Pulse Rate 76 68 Respiratory Rate 22 20 Blood Pressure 120/78 Pulse Oximetry 99 99 Oxygen Delivery Method 06/17/23 16:15 06/17/23 16:15 06/17/23 16:30 Temperature Pulse Rate 72 76 Respiratory Rate 23 22 Blood Pressure 127/76 Pulse Oximetry 100 99 Oxygen Delivery Method 06/17/23 16:30 06/17/23 16:45 06/17/23 16:45 Temperature Pulse Rate 76 Respiratory Rate 17 Blood Pressure 143/89 H 136/94 H Pulse Oximetry 98 Oxygen Delivery Method 06/17/23 17:00 06/17/23 17:00 06/17/23 17:30 Temperature Pulse Rate 87 67 Respiratory Rate 23 Blood Pressure 136/80 Pulse Oximetry 99 100 Oxygen Delivery Method <Sadiq Mckinney MD - Last Filed: 06/17/23 18:56> Orders Ordered: ED Orders 06/17/23 12:46 XR chest 1V Stat 06/17/23 12:50 Complete Blood Count AUTO DIFF Stat Comprehensive Metabolic Panel Stat Lipase Stat Magnesium Stat PTT Partial Thromboplastin Damien Stat Prothrombin Time INR Stat Troponin & CK Cardiac Panel Stat 06/17/23 13:02 EKG-12 Lead Stat 06/17/23 15:33 Urine Culture Stat Urine Microscopic Stat 06/17/23 17:50 Urine Microscopic Stat Discontinued Medications Acetaminophen (Acetaminophen 325 Mg Tablet) 975 mg PO NOW ONE Stop: 06/17/23 15:17 Last Admin: 06/17/23 15:29 Dose: 975 mg Documented By: FRANCISCA Sodium Chloride (Normal Saline 0.9%) 1,000 mls @ 1,000 mls/hr IV BOLUS ONE Stop: 06/17/23 16:15 Last Infusion: 06/17/23 16:40 Dose: Infused Documented By: Admin: 06/17/23 15:28 Dose: 1,000 mls/hr Documented By: FRANCISCA Pseudoephedrine HCl (Pseudoephedrine 30 Mg Tablet) 60 mg PO Q6HR PRN PRN Reason: Congestion Vital Signs Vital signs: Vital Signs - 8 hr 06/17/23 12:42 06/17/23 14:16 06/17/23 14:18 Temperature 98.8 F Pulse Rate 92 H 115 H 83 Respiratory Rate 16 Blood Pressure 170/94 H Pulse Oximetry 100 100 100 Oxygen Delivery Method Room Air 06/17/23 14:18 06/17/23 14:30 06/17/23 14:30 Temperature Pulse Rate 86 Respiratory Rate 25 H Blood Pressure 156/96 H 149/96 H Pulse Oximetry 100 Oxygen Delivery Method 06/17/23 15:00 06/17/23 15:00 06/17/23 15:35 Temperature Pulse Rate 101 H 98 H Respiratory Rate 23 20 Blood Pressure 144/102 H Pulse Oximetry 100 99 Oxygen Delivery Method 06/17/23 15:37 06/17/23 15:37 06/17/23 15:45 Temperature Pulse Rate 84 Respiratory Rate 18 Blood Pressure 138/80 143/91 H Pulse Oximetry 98 Oxygen Delivery Method 06/17/23 15:45 06/17/23 16:00 06/17/23 16:00 Temperature Pulse Rate 76 68 Respiratory Rate 22 20 Blood Pressure 120/78 Pulse Oximetry 99 99 Oxygen Delivery Method 06/17/23 16:15 06/17/23 16:15 06/17/23 16:30 Temperature Pulse Rate 72 76 Respiratory Rate 23 22 Blood Pressure 127/76 Pulse Oximetry 100 99 Oxygen Delivery Method 06/17/23 16:30 06/17/23 16:45 06/17/23 16:45 Temperature Pulse Rate 76 Respiratory Rate 17 Blood Pressure 143/89 H 136/94 H Pulse Oximetry 98 Oxygen Delivery Method 06/17/23 17:00 06/17/23 17:00 06/17/23 17:30 Temperature Pulse Rate 87 67 Respiratory Rate 23 Blood Pressure 136/80 Pulse Oximetry 99 100 Oxygen Delivery Method MDM - Chest Pain <Elvi Alvarez PA-C - Last Filed: 06/17/23 18:46> Lab Data 06/17/23 12:50 06/17/23 12:50 Labs: Lab Results 06/17/23 06/17/23 06/17/23 Range/Units 12:50 15:33 17:50 WBC 7.5 (4.5-11.0) X10^3/uL RBC 4.07 (4.0-5.2) X10^6/uL Hgb 14.3 (12.0-16.0) g/dL Hct 41.5 (36-46) % MCV 102.0 H (80-100) fL MCH 35.2 H (26-34) PG MCHC 34.6 (30-36) % RDW 15.8 H (11.6-14.8) % Plt Count 318 (150-400) X10^3/uL Neut % (Auto) 51.6 (50-75) % Lymph % (Auto) 42.0 H (25-40) % Hettinger % (Auto) 5.8 (3-14) % Eos % (Auto) 0.3 L (2-4) % Baso % (Auto) 0.3 (0-2) % Neut # (Auto) 3900 (6477-2405) /uL Lymph # (Auto) 3200 (1838-9276) /uL Hettinger # (Auto) 400 (0-900) /uL Eos # (Auto) 0 (0-450) /uL Baso # (Auto) 0 (0-100) /uL PT 13.3 H (10.1-12.7) SECONDS INR 1.2 (0.9-1.3) APTT 33 (26-36) SECONDS Sodium 140 (137-145) mmol/L Potassium 3.3 L (3.4-5.1) mmol/L Chloride 107 (98-107) mmol/L Carbon Dioxide 19 L (22-32) mmol/L BUN 10 (7-17) mg/dL Creatinine 0.66 (0.52-1.04) mg/dL Estimated GFR > 60 (>60) mL/min BUN/Creatinine Ratio 15.2 (6-22) Glucose 106 H (70-100) mg/dL Calcium 9.9 (8.4-10.2) mg/dL Magnesium 2.1 (1.6-2.3) mg/dL Total Bilirubin 0.7 (0.2-1.3) mg/dL AST 25 (14-36) IU/L ALT 21 (<35) IU/L Alkaline Phosphatase 77 (38-126) U/L Total Creatine Kinase 122 (30-135) U/L Troponin I < 0.012 (0.01-0.034) ng/mL Total Protein 8.2 (6.3-8.2) g/dL Albumin 4.8 (3.5-5.0) g/dL Globulin 3.4 (1.7-4.1) g/dL Albumin/Globulin Ratio 1.4 (1.0-2.8) Lipase 91 (23-300) U/L Urine RBC 0-1/hpf 0-1/hpf (0-5/HPF) Urine WBC 5-10/hpf H 0-1/hpf (0-5/HPF) Ur Squamous Epith Cells 10-30 /hpf H D 0-1 /hpf D (0-5/HPF) Urine Bacteria Few (2-10) H Occasional (0-1) (None) Ur Culture Indicated? Specimen cultured Cult not indicated Point of Care Testing Test Results Negative Urine Dip Bedside Urine Glucose Negative Bedside Urine Bilirubin - Negative Bedside Urine Ketone ++ 40 Urine Specific Hamilton 1.025 Bedside Urine Occult Blood - Negative Bedside Urine pH 6.0 Bedside Urine Protein - Negative Bedside Urine Urobilinogen - Negative Bedside Urine Nitrite - Negative Bedside Urine Leukocytes - Negative Esterase Imaging Data Chest x-ray: Radiologist's Impression: PROCEDURE: XR CHEST 1V INDICATIONS: chest pain TECHNIQUE: One view of the chest was acquired. COMPARISON: [facility], , XR CHEST 2V, 09/25/2021, 23:34. FINDINGS: Surgical changes and devices: None. Lungs and pleura: Lungs are clear. No pleural effusions or pneumothorax. Mediastinum: Mediastinal contours appear normal. Heart size is normal. Bones and chest wall: No suspicious bony lesions. Overlying soft tissues appear unremarkable. IMPRESSION: Portable chest within normal limits for age. Approved by: Abram Nolasco M.D. on 06/17/2023 at 12:55 MDM Narrative Medical decision making narrative: Multiple etiologies for patient's symptoms considered including, but not limited to: Upper respiratory infection, ACS, PE, anxiety. On arrival to ER, patient tachycardic up to 115 and hypertensive with systolic blood pressure in the 170s. Her mother was in the room and often answering the questions for her. Patient appeared quite anxious. After our initial discussion, I administered 1 L normal saline bolus and Tylenol. Patient's mother left with her daughter. Patient's heart rate came down to the 70s with blood pressure in the 120s. Per Wells criteria, she is low risk for PE with a score of 1.5; after hydration, heart rate down to 70. We will not test D-dimer or further assess for PE as I believe this is very unlikely. Labs without clinically significant abnormality, troponin negative, EKG reassuring, chest x-ray with no evidence of pneumonia or cardiomegaly. Patient appears more relaxed. Discussed normal findings on labs, x-rays. Initial urine somewhat contaminated, ask patient to leave a repeat sample. She does report a vaginal yeast infection that has not resolved she is currently treating with her primary care. I believe patient has viral sinusitis and anxiety. I advised her to take Tylenol and Sudafed for her sinusitis, as well as nasal rinses with a Neti pot. She can follow up with her primary care in relation to her anxiety and her atypical chest pain. Return precautions discussed. Patient's symptoms improved over duration of stay with above-stated therapies. Findings and discharge diagnosis discussed with patient/family followed by verbalization of understanding Return precautions discussed with patient/family whom verbalize understanding of diagnosis and plan <Sadiq Mckinney MD - Last Filed: 06/17/23 18:56> Lab Data Labs: Lab Results 06/17/23 06/17/23 06/17/23 Range/Units 12:50 15:33 17:50 WBC 7.5 (4.5-11.0) X10^3/uL RBC 4.07 (4.0-5.2) X10^6/uL Hgb 14.3 (12.0-16.0) g/dL Hct 41.5 (36-46) % MCV 102.0 H (80-100) fL MCH 35.2 H (26-34) PG MCHC 34.6 (30-36) % RDW 15.8 H (11.6-14.8) % Plt Count 318 (150-400) X10^3/uL Neut % (Auto) 51.6 (50-75) % Lymph % (Auto) 42.0 H (25-40) % Hettinger % (Auto) 5.8 (3-14) % Eos % (Auto) 0.3 L (2-4) % Baso % (Auto) 0.3 (0-2) % Neut # (Auto) 3900 (4919-2045) /uL Lymph # (Auto) 3200 (8119-9047) /uL Hettinger # (Auto) 400 (0-900) /uL Eos # (Auto) 0 (0-450) /uL Baso # (Auto) 0 (0-100) /uL PT 13.3 H (10.1-12.7) SECONDS INR 1.2 (0.9-1.3) APTT 33 (26-36) SECONDS Sodium 140 (137-145) mmol/L Potassium 3.3 L (3.4-5.1) mmol/L Chloride 107 (98-107) mmol/L Carbon Dioxide 19 L (22-32) mmol/L BUN 10 (7-17) mg/dL Creatinine 0.66 (0.52-1.04) mg/dL Estimated GFR > 60 (>60) mL/min BUN/Creatinine Ratio 15.2 (6-22) Glucose 106 H (70-100) mg/dL Calcium 9.9 (8.4-10.2) mg/dL Magnesium 2.1 (1.6-2.3) mg/dL Total Bilirubin 0.7 (0.2-1.3) mg/dL AST 25 (14-36) IU/L ALT 21 (<35) IU/L Alkaline Phosphatase 77 (38-126) U/L Total Creatine Kinase 122 (30-135) U/L Troponin I < 0.012 (0.01-0.034) ng/mL Total Protein 8.2 (6.3-8.2) g/dL Albumin 4.8 (3.5-5.0) g/dL Globulin 3.4 (1.7-4.1) g/dL Albumin/Globulin Ratio 1.4 (1.0-2.8) Lipase 91 (23-300) U/L Urine RBC 0-1/hpf 0-1/hpf (0-5/HPF) Urine WBC 5-10/hpf H 0-1/hpf (0-5/HPF) Ur Squamous Epith Cells 10-30 /hpf H D 0-1 /hpf D (0-5/HPF) Urine Bacteria Few (2-10) H Occasional (0-1) (None) Ur Culture Indicated? Specimen cultured Cult not indicated Point of Care Testing Test Results Negative Urine Dip Bedside Urine Glucose Negative Bedside Urine Bilirubin - Negative Bedside Urine Ketone ++ 40 Urine Specific Hamilton 1.025 Bedside Urine Occult Blood - Negative Bedside Urine pH 6.0 Bedside Urine Protein - Negative Bedside Urine Urobilinogen - Negative Bedside Urine Nitrite - Negative Bedside Urine Leukocytes - Negative Esterase Discharge Plan Departure Patient Disposition: Home Clinical Impression: Atypical chest pain, Viral sinusitis Instructions: DI for Sinusitis, DI for Atypical Chest Pain Activity Restrictions/Additional Instructions: *You have been diagnosed with atypical chest pain and viral sinusitis. You may find benefit from using a Neti pot to flush your sinuses, [id number] medicine such as Sudafed for decongestant. Please follow-up with your primary care regarding your concerns. *What to do: *Please continue to take your regular medications as directed. [ ] New medication prescriptions sent to your pharmacy: [ ] [ ] New medication written as a paper prescription [x] No new medications given *Please follow up with your primary care provider in 2-3 days, call for an appointment. Let them know you were seen in the Emergency Department and that we ask that you be seen in follow up. We will electronically transmit a record of today's note if your PCP is in our system *If you do not have a primary care provider please contact the [facility] Resource line at [phone]. They will ask some questions about your medical history and help get you set up with a doctor in the community. *Return to Emergency Department if you should have any new, worsening or concerning symptoms, such as [fever greater than 101 F, shaking chills, worsening pain, persistent vomiting or other concerning symptoms]. Prescriptions: No Action fluconazole [Diflucan] 150 mg tablet 150 mg PO ONCE Qty: 2 0RF Rx Instructions: Repeat in 5 days if symptoms persist clobetasol 0.05 % ointment 1 applic topical .COMPLEX Qty: 30 0RF Rx Instructions: 1 applic topical; Apply to affected area daily for 10 days and then twice a week sertraline [Zoloft] 25 mg tablet 25 mg PO DAILY nystatin-triamcinolone 100,000-0.1 unit/gram-% ointment 1 applic topical BID Qty: 30 0RF Rx Instructions: Apply to ext genitalia twice a day for 2 wks and then daily for a total of 3 wks Estring 2 mg (7.5 mcg /24 hour) ring 1 vag ring vaginal [id number] Qty: 1 3RF estradiol [Estrace] 0.01 % (0.1 mg/gram) cream 0.3 g vaginal DAILY Qty: 42.5 0RF Rx Instructions: Apply small amount to the external genitalia daily gabapentin 100 mg capsule 100 mg PO BID Qty: 20 0RF Referrals: Pawan Boyd MD [Primary Care Provider] - Stand Alone Forms: Patient Portal/API
== END 2023-06-17 17:47 | disposition home or self-care (01) ==
PROVIDERS: Emergency Medicine; Emergency Provider Physician Assistant; PCP Family Medicine
DX: R07.89 Other chest pain (principal); J32.9 Chronic sinusitis, unspecified; R06.02 Shortness of breath
CPT/HCPCS: 36415; 71045; 80053; 81003; 81015; 81025; 82550; 83690; 83735; 84484; 85025; 85610; 85730; 87086; 93005; 99284

== ENCOUNTER → 2023-07-10 10:57 | Outpatient (CLI) | payer OTHER, MEDICAID, SELFPAY ==
--- NOTE | 2023-07-10 | DI.CT.S_ITS ---
PROCEDURE: CT CHEST ABD PEL W CON INDICATIONS: right upper quadrant pain/chest pressure TECHNIQUE: After the administration of oral and intravenous contrast, axial sections acquired from the supraclavicular neck to the pubic symphysis. Coronal and sagittal reformats were performed. For radiation dose reduction, the following was used: automated exposure control, adjustment of mA and/or kV according to patient size. COMPARISON: None. FINDINGS: Image quality: Excellent. CHEST: Lower Neck: No enlarged lymph nodes. Thyroid: Within normal limits. Axillae: No enlarged lymph nodes. Chest Wall: Unremarkable. Lungs and Airways: No consolidation or suspicious nodules. Pleura: No pneumothorax or pleural effusions. Heart: Heart size is normal. No pericardial effusion. Thoracic Vessels: The aorta and pulmonary arteries demonstrate normal size. Mediastinum and Lora: No enlarged lymph nodes. Esophagus: No wall thickening. No hiatal hernia. ABDOMEN: Liver: Unremarkable. Gallbladder: Unremarkable. Biliary ducts: Unremarkable. Pancreas: Unremarkable. Spleen: Unremarkable. Adrenal Glands: Unremarkable. Kidneys and Ureters: Unremarkable. Stomach and Bowel: Stomach, small bowel loops, and colon are unremarkable. Peritoneum: No abnormal intraperitoneal fluid. No free air. Ventral Wall: No hernia. Abdominal Nodes: No retroperitoneal or mesenteric adenopathy by size criteria. Vessels: Aorta and inferior vena cava are normal in size. PELVIS: Pelvic Organs: Unremarkable. Bladder: Unremarkable. Pelvic Nodes: No enlarged lymph nodes. Miscellaneous: No inguinal hernias are seen. Bones: Unremarkable. IMPRESSION: Normal for age, source of current right upper quadrant pain and sense of chest pressure symptoms is not seen. Dictated by: Milton Moran M.D. on 07/10/2023 at 14:21 Approved by: Milton Moran M.D. on 07/10/2023 at 14:23
== END ==
PROVIDERS: PCP Family Medicine; Referring Provider Family Medicine; Visit Provider Family Medicine
DX: R07.89 Other chest pain (principal); R10.11 Right upper quadrant pain; R10.31 Right lower quadrant pain; R00.2 Palpitations; R53.83 Other fatigue; R11.0 Nausea
CPT/HCPCS: 71260; 74177; Q9967

== ENCOUNTER 2023-07-12 12:41 | Emergency (ER) | payer OTHER, MEDICAID, SELFPAY ==
[2023-07-12 13:10] VITALS: BP 140/97; PULSE 89; RESP 18; TEMP 36.9; O2SAT 98
--- NOTE | 2023-07-12 14:53 | ED_ITS ---
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 She reports roughly 4 weeks of persistent chest pain which is improved today. She notes that over the past week she is had back pain present. She also notes she had 1 week of coughing at nighttime as well as decreased O2 sat at night based upon her apple monitor. She reports occasional wheezing at night and a sensation of heaviness in her lungs. She states this morning she coughed up blood and what appeared to be some tissue. She denies nasal congestion and states she was able to only breathe out of her nose and not her throat because of the sense of fullness in her throat. She presented at the beginning of June for sinus pressure left chest pain x3 days. She was seen by her primary care to follow up on ongoing chest pain and and had a chest CT chest and abdomen ordered. She denies any recent fevers. She does note she vomited yesterday morning. She notes that her chest pain that it is persistent and unchanged by activity. She does note some improvement in the morning. She denies recent vision changes nor weakness. She reports she had several negative COVID tests at home. She denies lower extremity swelling bilaterally. Related Data Home Medications Medication Instructions Recorded Confirmed sertraline 25 mg tablet (Zoloft) 25 mg PO DAILY 10/18/19 11/19/20 Previous Rx's Medication Instructions Recorded gabapentin 100 mg capsule 100 mg PO BID #20 caps 08/20/19 estradiol 0.01% (0.1 mg/gram) 0.3 g vaginal DAILY #42.5 grams 10/09/20 vaginal cream (Estrace) estradiol 2 mg (7.5 mcg/24 hour) 1 vag ring vaginal [id number] #1 ea 10/09/20 vaginal ring (Estring) nystatin-triamcinolone 100,000 1 applic topical BID #30 grams 10/09/20 unit/gram-0.1 % topical ointment clobetasol 0.05 % topical ointment 1 applic topical .COMPLEX #30 grams 02/26/21 fluconazole 150 mg tablet 150 mg PO ONCE #2 tabs 02/26/21 (Diflucan) Allergies Allergy/AdvReac Type Severity Reaction Status Date / Time nitrofurantoin Allergy Verified 07/12/23 13:09 [From Macrobid] Patient History <Carmen Tang PA-C - Last Filed: 07/12/23 18:28> Medical History (Updated 07/12/23 @ 18:23 by Carmen Tang PA-C) Hx of migraines Surgical History No history of previous surgery Status post laparoscopy History of third molar tooth extraction Social History Smoking Status: Never smoker Smoking Status: Never smoker alcohol intake frequency: 0-2 drinks per day Substance Use Type: marijuana Exam <Carmen Tang PA-C - Last Filed: 07/12/23 18:28> Initial Vital Signs Initial Vital Signs: Vital Signs Temperature 98.5 F 07/12/23 13:10 Pulse Rate 89 07/12/23 13:10 Respiratory Rate 18 07/12/23 13:10 Blood Pressure 140/97 H 07/12/23 13:10 Pulse Oximetry 98 07/12/23 13:10 Oxygen Delivery Method Room Air 07/12/23 13:10 GENERAL: 37 year old patient appears stated age. Well-developed patient, in no acute distress. HEAD: Atraumatic. Normocephalic. EYES: Pupils equal round and reactive. No scleral icterus. No injection or drainage. ENT: Nose without bleeding, purulent drainage. Throat without erythema, tonsillar hypertrophy or exudate. Airway patent. NECK: Trachea midline. Non tender. No cervical lymphadenopathy CARDIOVASCULAR: Regular rate and rhythm without murmurs, gallops, or rubs. RESPIRATORY: Clear to auscultation. Breath sounds equal bilaterally. No wheezes, rales, or rhonchi. GASTROINTESTINAL: Abdomen soft, nondistended, mild tenderness in right upper quadrant EXTREMITIES: No bilateral lower extremity edema or joint tenderness. BACK: No deformity or crepitance noted, patient is tender in right back NEURO: AOx3. SKIN: No rash or erythema of visible areas <Nat Nunze DO - Last Filed: 07/12/23 19:53> Initial Vital Signs Initial Vital Signs: Vital Signs Temperature 98.5 F 07/12/23 13:10 Pulse Rate 89 07/12/23 13:10 Respiratory Rate 18 07/12/23 13:10 Blood Pressure 140/97 H 07/12/23 13:10 Pulse Oximetry 98 07/12/23 13:10 Oxygen Delivery Method Room Air 07/12/23 13:10 Course <Carmen Tang PA-C - Last Filed: 07/12/23 18:28> Orders Ordered: ED Orders 07/12/23 15:33 XR chest 1V Stat 07/12/23 16:01 EKG-12 Lead Stat 07/12/23 16:10 Covid-19 + FLU A/B + RSV - PCR Stat 07/12/23 17:15 BNP [NT-proBNP (BNP-Adult 18+)] Stat CBC Auto Diff [Complete Blood Count AUTO DIFF] Stat CMP [Comprehensive Metabolic Panel] Stat D Dimer Stat PT [Prothrombin Time INR] Stat PTT Partial Thromboplastin Damien Stat Troponin & CK Cardiac Panel Stat Vital Signs Vital signs: Vital Signs - 8 hr 07/12/23 13:10 07/12/23 15:07 07/12/23 16:00 Temperature 98.5 F Pulse Rate 89 76 84 Respiratory Rate 18 16 16 Blood Pressure 140/97 H 126/83 144/84 H Pulse Oximetry 98 100 100 Oxygen Delivery Method Room Air Room Air Room Air 07/12/23 18:35 Temperature 98.3 F Pulse Rate 81 Respiratory Rate 16 Blood Pressure 128/78 Pulse Oximetry 99 Oxygen Delivery Method Room Air <Nat Nunez DO - Last Filed: 07/12/23 19:53> Orders Ordered: ED Orders 07/12/23 15:33 XR chest 1V Stat 07/12/23 16:01 EKG-12 Lead Stat 07/12/23 16:10 Covid-19 + FLU A/B + RSV - PCR Stat 07/12/23 17:15 BNP [NT-proBNP (BNP-Adult 18+)] Stat CBC Auto Diff [Complete Blood Count AUTO DIFF] Stat CMP [Comprehensive Metabolic Panel] Stat D Dimer Stat PT [Prothrombin Time INR] Stat PTT Partial Thromboplastin Damien Stat Troponin & CK Cardiac Panel Stat Vital Signs Vital signs: Vital Signs - 8 hr 07/12/23 13:10 07/12/23 15:07 07/12/23 16:00 Temperature 98.5 F Pulse Rate 89 76 84 Respiratory Rate 18 16 16 Blood Pressure 140/97 H 126/83 144/84 H Pulse Oximetry 98 100 100 Oxygen Delivery Method Room Air Room Air Room Air 07/12/23 18:35 Temperature 98.3 F Pulse Rate 81 Respiratory Rate 16 Blood Pressure 128/78 Pulse Oximetry 99 Oxygen Delivery Method Room Air MDM - SOB/Dyspnea <Carmen Tang PA-C - Last Filed: 07/12/23 18:28> Lab Data 07/12/23 17:15 07/12/23 17:15 Labs: Lab Results 07/12/23 07/12/23 07/12/23 Range/Units 16:10 17:15 17:15 WBC 10.7 (4.5-11.0) X10^3/uL RBC 3.79 L (4.0-5.2) X10^6/uL Hgb 13.1 (12.0-16.0) g/dL Hct 38.1 (36-46) % MCV 100.6 H (80-100) fL MCH 34.5 H (26-34) PG MCHC 34.3 (30-36) % RDW 14.1 (11.6-14.8) % Plt Count 279 (150-400) X10^3/uL Neut % (Auto) 70.3 (50-75) % Lymph % (Auto) 24.0 L (25-40) % [place] % (Auto) 4.5 (3-14) % Eos % (Auto) 0.6 L (2-4) % Baso % (Auto) 0.6 (0-2) % Neut # (Auto) 7500 H (6883-2279) /uL Lymph # (Auto) 2600 (0862-0919) /uL [place] # (Auto) 500 (0-900) /uL Eos # (Auto) 100 (0-450) /uL Baso # (Auto) 100 (0-100) /uL PT 12.9 H (10.1-12.7) SECONDS INR 1.1 (0.9-1.3) APTT 33 (26-36) SECONDS D-Dimer 228 (<500) ng/ml Sodium 135 L (137-145) mmol/L Potassium 3.7 (3.4-5.1) mmol/L Chloride 103 (98-107) mmol/L Carbon Dioxide 24 (22-32) mmol/L BUN 7 (7-17) mg/dL Creatinine 0.61 (0.52-1.04) mg/dL Estimated GFR > 60 (>60) mL/min BUN/Creatinine Ratio 11.5 (6-22) Glucose 85 (70-100) mg/dL Calcium 9.3 (8.4-10.2) mg/dL Total Bilirubin 0.4 (0.2-1.3) mg/dL AST 21 (14-36) IU/L ALT 20 (<35) IU/L Alkaline Phosphatase 65 Cancelled (38-126) U/L Total Creatine Kinase 60 (30-135) U/L Troponin I < 0.012 (0.01-0.034) ng/mL NT-Pro-B Natriuret Pep 58 (<125) pg/mL Total Protein 7.0 (6.3-8.2) g/dL Albumin 4.1 (3.5-5.0) g/dL Globulin 2.9 (1.7-4.1) g/dL Albumin/Globulin Ratio 1.4 (1.0-2.8) SARS-CoV-2 (PCR) Negative (Negative) Influenza A (RT-PCR) Flu a negative (NEGATIVE) Influenza B (RT-PCR) Flu b negative (NEGATIVE) RSV (PCR) Negative (Negative) Point of Care Testing Test Results Negative Urine Dip Bedside Urine Glucose Negative Bedside Urine Bilirubin - Negative Bedside Urine Ketone - Negative Urine Specific [place] 1.01 Bedside Urine Occult Blood - Negative Bedside Urine pH 6 Bedside Urine Protein - Negative Bedside Urine Urobilinogen - Negative Bedside Urine Nitrite - Negative Bedside Urine Leukocytes - Negative Esterase Imaging Data Chest x-ray: Radiologist's Impression: PROCEDURE: XR CHEST 1V INDICATIONS: chest pain TECHNIQUE: One view of the chest was acquired. COMPARISON: [facility], CR, XR CHEST 1V, 06/17/2023, 12:43. [facility], CR, XR CHEST 2V, 09/25/2021, 23:34. FINDINGS: Surgical changes and devices: None. Lungs and pleura: Lungs are clear. No pleural effusions or pneumothorax. Mediastinum: Mediastinal contours appear normal. Heart size is normal. Bones and chest wall: No suspicious bony lesions. Overlying soft tissues appear unremarkable. IMPRESSION: Portable chest within normal limits for age. Dictated by: Iggy Tay M.D. on 07/12/2023 at 16:14 Approved by: Iggy Tay M.D. on 07/12/2023 at 16:15 ECG Data Interpretation: EKG shows normal sinus rhythm with no ST elevations or depression. No evidence of left ventricular hypertrophy. QRS is 82, no left axis deviation MDM Narrative Medical decision making narrative: CC: This is a new problem, uncertain diagnosis possible systemic effects Data collected from: patient, Medical records reviewed: 06/17/2023 ER visit Differential considered: IA, PE, Charlotte-Garza tear, pneumonia Exam documented above, pertinent findings include: Lab Test results independently reviewed as above. Pertinent findings: Check CBC, CMP, PT INR, D-dimer, alk phos, troponin, urine , UA, COVID flu and RSV which were negative Independently reviewed EKG as above: Normal sinus rhythm with no ST elevation or depression, no evidence of left ventricular hypertrophy. Imaging studies independently reviewed: CT chest abdomen and pelvis done on July 10 did not show any abnormalities. Chest x-ray done today did not show any abnormalities. Consultations: Discussed case with Dr. Nunez. Due to patient's hemoptysis, recommend full blood workup. Treatments: No treatments given Re-evaluations: No hemoptysis or shortness of breath while in emergency department. Discussion: Discussed results of lab results including BNP, troponin, CMP, CBC, D-dimer, PT/INR, PTT, UA and , EKG and chest x-ray, alk phos. Discussed with patient that all labs were within normal limits. Imaging did not show any pulmonary disease. Discussed with patient that I recommend she follow up with her primary care provider for further evaluation of her symptoms. Based upon history and physical exam, suspicion for pulmonary embolism, IA, Charlotte- Garza tear are low. Discussed with patient that I recommend she follow up for further evaluation in the ER if she develops worsening abdominal pain with fever, return in worsening of hemoptysis or other concerning signs or symptoms. She is agreeable with plan of care and would prefer to go home at this time. Disposition: see below, along with detailed discharge instructions that have been reviewed with patient as well as indications for ED re-evaluation and additional outpatient follow up <Nat Nunez DO - Last Filed: 07/12/23 19:53> Lab Data Labs: Lab Results 07/12/23 07/12/23 07/12/23 Range/Units 16:10 17:15 17:15 WBC 10.7 (4.5-11.0) X10^3/uL RBC 3.79 L (4.0-5.2) X10^6/uL Hgb 13.1 (12.0-16.0) g/dL Hct 38.1 (36-46) % MCV 100.6 H (80-100) fL MCH 34.5 H (26-34) PG MCHC 34.3 (30-36) % RDW 14.1 (11.6-14.8) % Plt Count 279 (150-400) X10^3/uL Neut % (Auto) 70.3 (50-75) % Lymph % (Auto) 24.0 L (25-40) % [place] % (Auto) 4.5 (3-14) % Eos % (Auto) 0.6 L (2-4) % Baso % (Auto) 0.6 (0-2) % Neut # (Auto) 7500 H (6056-6409) /uL Lymph # (Auto) 2600 (4415-7796) /uL [place] # (Auto) 500 (0-900) /uL Eos # (Auto) 100 (0-450) /uL Baso # (Auto) 100 (0-100) /uL PT 12.9 H (10.1-12.7) SECONDS INR 1.1 (0.9-1.3) APTT 33 (26-36) SECONDS D-Dimer 228 (<500) ng/ml Sodium 135 L (137-145) mmol/L Potassium 3.7 (3.4-5.1) mmol/L Chloride 103 (98-107) mmol/L Carbon Dioxide 24 (22-32) mmol/L BUN 7 (7-17) mg/dL Creatinine 0.61 (0.52-1.04) mg/dL Estimated GFR > 60 (>60) mL/min BUN/Creatinine Ratio 11.5 (6-22) Glucose 85 (70-100) mg/dL Calcium 9.3 (8.4-10.2) mg/dL Total Bilirubin 0.4 (0.2-1.3) mg/dL AST 21 (14-36) IU/L ALT 20 (<35) IU/L Alkaline Phosphatase 65 Cancelled (38-126) U/L Total Creatine Kinase 60 (30-135) U/L Troponin I < 0.012 (0.01-0.034) ng/mL NT-Pro-B Natriuret Pep 58 (<125) pg/mL Total Protein 7.0 (6.3-8.2) g/dL Albumin 4.1 (3.5-5.0) g/dL Globulin 2.9 (1.7-4.1) g/dL Albumin/Globulin Ratio 1.4 (1.0-2.8) SARS-CoV-2 (PCR) Negative (Negative) Influenza A (RT-PCR) Flu a negative (NEGATIVE) Influenza B (RT-PCR) Flu b negative (NEGATIVE) RSV (PCR) Negative (Negative) Point of Care Testing Test Results Negative Urine Dip Bedside Urine Glucose Negative Bedside Urine Bilirubin - Negative Bedside Urine Ketone - Negative Urine Specific [place] 1.01 Bedside Urine Occult Blood - Negative Bedside Urine pH 6 Bedside Urine Protein - Negative Bedside Urine Urobilinogen - Negative Bedside Urine Nitrite - Negative Bedside Urine Leukocytes - Negative Esterase ECG Data Interpretation: EKG shows normal sinus rhythm with no ST elevations or depression. No evidence of left ventricular hypertrophy. QRS is 82, no left axis deviation Mank: Sinus rhythm rate of 93 LA 146 QRS [address] QTC [address] No acute ST elevation depression noted. Discharge Plan Departure Patient Disposition: Home Clinical Impression: Cough with hemoptysis Activity Restrictions/Additional Instructions: Thank you for coming in today for your care. We evaluated you for bloody cough this morning. The rest of your exam was reassuring as well as your lab work and chest x-ray and EKG. We discussed to continue following up with primary care provider regarding heart monitoring results and continued investigation of symptoms of chest pain and cough with hemoptysis. We did not find evidence today of IA or pulmonary embolism nor pneumonia or heart enlargement. We did discuss further follow up if she should develop return and worsening of hemoptysis, chest pain right upper quadrant pain, fever or other concerning symptoms. She is agreeable to go home and plans to follow up with her PCP. Prescriptions: No Action fluconazole [Diflucan] 150 mg tablet 150 mg PO ONCE Qty: 2 0RF Rx Instructions: Repeat in 5 days if symptoms persist clobetasol 0.05 % ointment 1 applic topical .COMPLEX Qty: 30 0RF Rx Instructions: 1 applic topical; Apply to affected area daily for 10 days and then twice a week sertraline [Zoloft] 25 mg tablet 25 mg PO DAILY nystatin-triamcinolone 100,000-0.1 unit/gram-% ointment 1 applic topical BID Qty: 30 0RF Rx Instructions: Apply to ext genitalia twice a day for 2 wks and then daily for a total of 3 wks Estring 2 mg (7.5 mcg /24 hour) ring 1 vag ring vaginal [id number] Qty: 1 3RF estradiol [Estrace] 0.01 % (0.1 mg/gram) cream 0.3 g vaginal DAILY Qty: 42.5 0RF Rx Instructions: Apply small amount to the external genitalia daily gabapentin 100 mg capsule 100 mg PO BID Qty: 20 0RF Referrals: Pawan Boyd MD [Primary Care Provider] - Stand Alone Forms: Patient Portal/API
[2023-07-12 15:07] VITALS: BP 126/83; PULSE 76; RESP 16; O2SAT 100
--- NOTE | 2023-07-12 15:33 | DI.RAD.S_ITS ---
PROCEDURE: XR CHEST 1V INDICATIONS: chest pain TECHNIQUE: One view of the chest was acquired. COMPARISON: [facility], CR, XR CHEST 1V, 06/17/2023, 12:43. [facility], CR, XR CHEST 2V, 09/25/2021, 23:34. FINDINGS: Surgical changes and devices: None. Lungs and pleura: Lungs are clear. No pleural effusions or pneumothorax. Mediastinum: Mediastinal contours appear normal. Heart size is normal. Bones and chest wall: No suspicious bony lesions. Overlying soft tissues appear unremarkable. IMPRESSION: Portable chest within normal limits for age. Dictated by: Iggy Tay M.D. on 07/12/2023 at 16:14 Approved by: Iggy Tay M.D. on 07/12/2023 at 16:15
[2023-07-12 16:00] VITALS: BP 144/84; PULSE 84; RESP 16; O2SAT 100
[2023-07-12 16:51] LABS: Influenza A - CEPHEID Flu A NEGATIVE (NEGATIVE); Influenza B - CEPHEID Flu B NEGATIVE (NEGATIVE); Respiratory Syncytial Virus Negative (Negative)
[2023-07-12 16:52] LABS: COVID-19 CEPHEID 4-PLEX PCR Negative (Negative)
[2023-07-12 17:24] LABS: Add Manual Diff / Slide Review NO; Basophils Absolute Auto 100 /uL (0-100); Basophils Percent Auto 0.6 % (0-2); Eosinophils Absolute Auto 100 /uL (0-450); Eosinophils Percent Auto 0.6 % (2-4); Hematocrit 38.1 % (36-46); Hemoglobin 13.1 g/dL (12.0-16.0); Lymphocytes Absolute Auto 2600 /uL (1100-4500); Mean Corpuscular HGB Conc 34.3 % (30-36); Mean Corpuscular Hemoglobin 34.5 PG (26-34); Mean Corpuscular Volume 100.6 fL (80-100); Monocytes Absolute Auto 500 /uL (0-900); Monocytes Percent Auto 4.5 % (3-14); Neutrophils Absolute Auto 7500 /uL (1500-7000); Neutrophils Percent Auto 70.3 % (50-75); Platelet Count 279 X10^3/uL (150-400); Red Blood Cell Count 3.79 X10^6/uL (4.0-5.2); Red Cell Distribution Width 14.1 % (11.6-14.8); White Blood Cell Count 10.7 X10^3/uL (4.5-11.0)
[2023-07-12 17:34] LABS: INR 1.1 (0.9-1.3); Prothrombin Time 12.9 SECONDS (10.1-12.7)
[2023-07-12 17:38] LABS: Alanine Aminotransferase 20 IU/L (<35); Albumin 4.1 g/dL (3.5-5.0); Albumin Globulin Ratio 1.4 (1.0-2.8); Alkaline Phosphatase 65 U/L (38-126); Aspartate Aminotransferase 21 IU/L (14-36); BUN Creatinine Ratio 11.5 (6-22); Bilirubin Total 0.4 mg/dL (0.2-1.3); Blood Urea Nitrogen 7 mg/dL (7-17); Calcium 9.3 mg/dL (8.4-10.2); Carbon Dioxide 24 mmol/L (22-32); Chloride 103 mmol/L (98-107); Creatine Kinase 60 U/L (30-135); Estimated Glomerular Filt Rate > 60 mL/min (>60); Globulin 2.9 g/dL (1.7-4.1); Glucose 85 mg/dL (70-100); HEMOLYSIS < 15 (0-50); Potassium 3.7 mmol/L (3.4-5.1); Sodium 135 mmol/L (137-145)
[2023-07-12 17:45] LABS: D Dimer 228 ng/ml (<500); PTT Partial Thromboplastin Tim 33 SECONDS (26-36)
[2023-07-12 17:49] LABS: NT-proBNP (BNP-Adult 18+) 58 pg/mL (<125); Troponin I < 0.012 ng/mL (0.01-0.034)
[2023-07-12 18:35] VITALS: BP 128/78; PULSE 81; RESP 16; TEMP 36.8; O2SAT 99
== END 2023-07-12 18:35 | disposition home or self-care (01) ==
PROVIDERS: Emergency Provider Physician Assistant; PCP Family Medicine
DX: R04.2 Hemoptysis (principal); R05.9 Cough, unspecified; R07.9 Chest pain, unspecified; Z20.822 Contact with and (suspected) exposure to COVID-19
CPT/HCPCS: 0241U; 71045; 80053; 81003; 81025; 82550; 83880; 84484; 85025; 85379; 85610; 85730; 93005; 99282; 99284

== ENCOUNTER → 2024-01-25 12:36 | Outpatient (CLI) | payer OTHER, MEDICAID, SELFPAY ==
--- NOTE | 2024-01-25 12:38 | DI.RAD.S_ITS ---
PROCEDURE: XR THORACIC SPINE 3V INDICATIONS: MID BACK PAIN TECHNIQUE: 3 views of the thoracic spine were acquired. COMPARISON: None. FINDINGS: Bones: No fractures or dislocations. No suspicious bony lesions. 12 pairs of ribs are noted, and appear intact where visualized. 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 Mild multilevel degenerative changes with joint space narrowing and osteophytosis. Soft tissues: No paravertebral stripe thickening. Visualized lungs are clear. IMPRESSION: 1. No acute bony abnormality. 2. 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 3. Mild multilevel degenerative changes of the spine. Dictated by: Giselle Morgan M.D. on 01/27/2024 at 16:58 Approved by: Giselle Morgan M.D. on 01/27/2024 at 17:00
== END ==
PROVIDERS: PCP Family Medicine; Referring Provider Internal Medicine; Visit Provider Internal Medicine
DX: M47.814 Spondylosis without myelopathy or radiculopathy, thoracic region (principal); M43.9 Deforming dorsopathy, unspecified; M54.9 Dorsalgia, unspecified
CPT/HCPCS: 72072

== ENCOUNTER → 2024-02-16 12:34 | Outpatient (CLI) | payer OTHER, MEDICAID, SELFPAY ==
--- NOTE | 2024-02-16 | DI.RAD.S_ITS ---
PROCEDURE: XR FINGER RT MIN 2V INDICATIONS: Crushing injury of right index finger, initial encounter TECHNIQUE: AP hand, 2 views of the 2nd finger(s) acquired. COMPARISON: None. FINDINGS: Bones: No fractures or dislocations. No suspicious bony lesions. Soft tissues: No suspicious soft tissue calcifications. IMPRESSION: No acute bony abnormality. Dictated by: Yamilet Whiting M.D. on 02/17/2024 at 8:42 Approved by: Yamilet Whiting M.D. on 02/17/2024 at 8:44
== END ==
PROVIDERS: PCP Registered Nurse; Referring Provider Internal Medicine; Visit Provider Internal Medicine
DX: S67.190A Crushing injury of right index finger, initial encounter (principal); X58.XXXA Exposure to other specified factors, initial encounter
CPT/HCPCS: 73140

== ENCOUNTER → 2025-07-04 14:46 | Outpatient (CLI) | payer OTHER, MEDICAID, SELFPAY ==
--- NOTE | 2025-07-04 14:47 | DI.US.S_ITS ---
PROCEDURE: US SOFT TISSUE HEAD AND NECK INDICATIONS: HEAD LUMP TECHNIQUE: Real-time scanning was performed of the neck region of interest, with image documentation. COMPARISON: None. FINDINGS: In the area of interest in the right neck, multiple sonographically normal-appearing lymph nodes are identified with preserved fatty hilum and normal cortical thickness. IMPRESSION: In the area of interest in the right neck, multiple sonographically normal lymph nodes are identified. No sonographic abnormality. Dictated by: Ayan Ma M.D. on 07/04/2025 at 17:55 Approved by: Ayan Ma M.D. on 07/04/2025 at 17:57
== END ==
LOC: US 14:46
PROVIDERS: PCP Family Medicine; Referring Provider Family Medicine; Visit Provider Family Medicine
DX: R22.0 Localized swelling, mass and lump, head (principal)
CPT/HCPCS: 76536

== ENCOUNTER → 2025-08-22 12:13 | Outpatient (CLI) | payer OTHER, SELFPAY ==
[2025-08-22 12:35] LABS: Add Manual Diff / Slide Review NO; Hematocrit 39.7 % (36-46); Hemoglobin 13.7 g/dL (12.0-16.0); Lymphocytes Absolute Auto 2500 /uL (1100-4500); Mean Corpuscular HGB Conc 34.5 % (30-36); Mean Corpuscular Hemoglobin 32.5 PG (26-34); Mean Corpuscular Volume 94.3 fL (80-100); Platelet Count 256 X10^3/uL (150-400)
[2025-08-22 12:55] LABS: Alanine Aminotransferase 13 IU/L (<35); Albumin 4.7 g/dL (3.5-5.0); Albumin Globulin Ratio 2.0 (1.0-2.8); Alkaline Phosphatase 41 U/L (38-126); Blood Urea Nitrogen 10 mg/dL (7-17); Calcium 9.7 mg/dL (8.4-10.2); Carbon Dioxide 27 mmol/L (22-32); Chloride 106 mmol/L (98-107); Cholesterol 209 mg/dL (140-199); Estimated Glomerular Filt Rate > 60 mL/min (>60); Globulin 2.4 g/dL (1.7-4.1); Glucose 105 mg/dL (70-99); HDL Cholesterol 60 mg/dL (40-60); HEMOLYSIS < 15 (0-50); Potassium 4.2 mmol/L (3.4-5.1); Sodium 140 mmol/L (137-145); Total Protein 7.1 g/dL (6.3-8.2); Triglycerides 87 mg/dL (35-150)
[2025-08-22 13:26] LABS: TSH w/ Reflex to FT4 1.27 uIU/mL (0.47-4.68)
[2025-08-22 15:03] LABS: Follicle Stimulating Hormone 7.72 mIU/mL
[2025-08-22 15:19] LABS: Estradiol, Total 38.5 pg/mL
== END ==
PROVIDERS: PCP Family Medicine; Referring Provider Obstetrics & Gynecology; Visit Provider Obstetrics & Gynecology
DX: Z01.419 Encounter for gynecological examination (general) (routine) without abnormal findings (principal); L65.9 Nonscarring hair loss, unspecified; R74.8 Abnormal levels of other serum enzymes; R53.83 Other fatigue
CPT/HCPCS: 36415; 80053; 80061; 82670; 83001; 84402; 84403; 84443; 85025